=== PATIENT | female | born 1985 | race American Indian/Alaskan Native ===

== ENCOUNTER 2019-05-27 13:32 | Inpatient (IN) | payer MEDICAID, OTHER ==
--- NOTE | 2019-05-27 13:52 | Emergency Department Report ---
Blank Doc - Documentation Documentation: 34-year-old female that presents with nausea vomiting and abdominal pain. This initial assessment/diagnostic orders/clinical plan/treatment(s) is/are subject to change based on patient's health status, clinical progression and re- assessment by fellow clinical providers in the ED. Further treatment and workup at subsequent clinical providers discretion. Patient/guardians urged not to elope from the ED as their condition may be serious if not clinically assessed and managed. Initial orders include: 1- Patient sent to [facility] for further evaluation and treatment 2- labs 3- UA
[2019-05-27] MEDS ORDERED: FAMOTIDINE 20 MG/2 ML INJ IV ONE (14:18)
[2019-05-27] MEDS ORDERED: SODIUM CHLORIDE 0.9% 1000 ML 1,000 ML IV ONE ×2 (14:18→16:03)
[2019-05-27] MEDS ORDERED: ONDANSETRON 4 MG/2 ML INJ IV ONE (14:18)
[2019-05-27] MEDS ORDERED: KETOROLAC 30 MG/1 ML INJ IV ONE (14:18)
[2019-05-27] MEDS ORDERED: DICYCLOMINE 20 MG/2 ML INJ IM ONE (14:18)
[2019-05-27 14:23] LABS: Hematocrit 36.6 % (30.3-42.9); Hemoglobin 12.4 gm/dl (10.1-14.3); Mean Corpuscular HGB Conc 34 % (30-34); Mean Corpuscular Volume 101 fl (79-97); Platelet Count 180 K/mm3 (140-440); Red Blood Count 3.61 M/mm3 (3.65-5.03); Red Cell Distribution Width 13.6 % (13.2-15.2)
[2019-05-27 14:38] LABS: BUN/Creatinine Ratio 9; Blood Urea Nitrogen 6 mg/dL (7-17); Calcium 9.4 mg/dL (8.4-10.2)
[2019-05-27 14:39] LABS: Alanine Aminotransferase 7 units/L (7-56); Albumin 4.5 g/dL (3.9-5); Hemolysis Index 7
[2019-05-27 15:24] LABS: Basophils # (Auto) 0.1 K/mm3 (0.0-0.1); Basophils % (Auto) 0.5 % (0.0-1.8); Eosinophils % (Auto) 0.1 % (0.0-4.3); Lymphocytes # (Auto) 0.9 K/mm3 (1.2-5.4); Lymphocytes % (Auto) 6.6 % (13.4-35.0); Monocytes # (Auto) 0.4 K/mm3 (0.0-0.8)
[2019-05-27 15:25] LABS: Basophils % (Manual) 0 % (0.0-1.8); RBC Morphology Normal; Total Cells Counted 100
[2019-05-27 15:50] LABS: Bacteria,Urine 1+ /HPF (Negative); Bilirubin,Urine NEG (Negative); Blood,Urine LG (Negative); Color,Urine Amber (Yellow); Mucus,Urine 3+ /HPF
[2019-05-27] MEDS ORDERED: MORPHINE 4 MG/1 ML INJ ONE (16:00)
[2019-05-27] MEDS ORDERED: MORPHINE 4 MG/1 ML INJ IV ONE (16:01)
--- NOTE | 2019-05-27 16:02 | Cat Scan Report ---
CT OF THE ABDOMEN AND PELVIS WITH INTRAVENOUS CONTRAST INDICATION / CLINICAL INFORMATION: Diffuse severe abdominal pain. TECHNIQUE: The patient received 100 cc Omnipaque [address] scans at this location are performed using CT dose reduction for ALARA by means of automated exposure control. COMPARISON: None available. FINDINGS: ABDOMEN: There are several mildly thick walled fluid-filled small bowel loops in the left mid to lowe r abdomen, probably representing distal jejunal loops. I see no evidence of bowel obstruction or pneu moperitoneum. The liver, spleen, gallbladder, bile ducts, pancreas, adrenal glands and kidneys are normal. No adeno mayelin is seen. The lung bases are clear. PELVIS: There are multiple small air bubbles along the wall of the cecum and proximal ascending colon circumferentially characteristic of pneumatosis. No bowel wall thickening is seen. I see no inflamma tory process in this region. The appendix is not seen. The superior mesenteric vessels are normal in appearance. There are prominent vessels in the left adnexa in the left renal vein is dilated. This can be seen wi th pelvic venous congestion. The uterus and adnexal regions are otherwise unremarkable. The urinary b ladder is collapsed. The distal ureters are not well seen. There is no evidence of diverticulitis. I do not see a hernia. No acute osseous abnormality is identified. IMPRESSION: 1. Findings characteristic of mild distal jejunal enteritis. 2. Pneumatosis involving the cecum and proximal ascending colon without bowel wall thickening, pneumo peritoneum or portal venous gas. Ischemia is possible. Benign causes of pneumatosis should also be co nsidered. CRITICAL RESULT: Time of Discovery (PARISH NURSE/CDT): 2:53 PM Time of Communication (PARISH NURSE/CDT): 2:54 PM Licensed Practitioner Receiving Report: Dr. Deng in the emergency room. Signer Name: Cornel Garner MD Signed: 05/27/2019 3:58 PM Workstation Name: [employer]
[2019-05-27] MEDS: metroNIDAZOLE/NS 500 MG/100 ML 500 MG/100 ML BAG IV SCH (16:36)
[2019-05-27] MEDS ORDERED: ACETAMINOPHEN 325 MG TAB PO PRN (16:41)
[2019-05-27] MEDS ORDERED: ALBUTEROL 2.5 MG/3 ML NEBU IH PRN (16:41)
--- NOTE | 2019-05-27 16:41 | History and Physical Report ---
History of Present Illness Chief complaint: My stomach hurts real bad History of present illness: 34 YO Female with No PMH presents to ED for evaluation. Pt states that she experienced sudden onset of abdominal pain over the past 1 day with persistently worsening symptoms over the same time frame. Pt states that her pain is 10/10, constant, diffuse, radiates to the back, worsened with movement, associated with nausea and multiple episodes of vomiting. EMS notified and upon arrival the patient was found to be in distress. Pt transported to [facility]. Pt seen and evaluated in ED and found to have symptoms consistent with Peritonitis complicated by SIRS, and UTI. Pt admitted to surgical floor. Surgery team consulted in ED. Pt treated with IV antibiotic therapy and is pending surgical intervention. Pt denies fever, chill, CP, Palpitations, Trauma, BRBPR, skin rash, or known ill contacts. No prior admission for review. No medication listed for reconciliation at time of admission. Past History Past Medical History: No medical history, other (reviewed) Past Surgical History: Social history: single. denies: smoking, alcohol abuse, prescription drug abuse, IV drug use Family history: no significant family history (reviewed) Medications and Allergies Allergies Allergy/AdvReac Type Severity Reaction Status Date / Time No Known Allergies Allergy Unverified 05/27/19 13:45 Home Medications Medication Instructions Recorded Confirmed Last Taken Type No Known Home Medications [No 05/27/19 05/27/19 Unknown History Reported Home Medications] Active Meds: Active Medications Sodium Chloride (Nacl 0.9% 1000 Ml) 1,000 mls @ 999 mls/hr IV BOLUS ONE Stop: 05/27/19 17:03 Cefepime HCl (Cefepime/Ns 2 Gm/100 Ml) 2 gm in 100 mls @ 200 mls/hr IV Q8HR CAL; Protocol Metronidazole (Flagyl 500 Mg/100 Ml) 500 mg in 100 mls @ 100 mls/hr IV Q8HR CAL; Protocol Last Admin: 05/27/19 16:36 Dose: 100 mls/hr Documented by: Review of Systems Constitutional: no weight loss, no weight gain, no fever, no chills Ears, nose, mouth and throat: no ear pain, no ear discharge, no tinnitis, no decreased hearing, no nasal congestion, no nasal discharge, no sinus pressure Breasts: no change in shape, no swelling, no mass Cardiovascular: no chest pain, no orthopnea, no palpitations, no rapid/irregular heart beat, no edema Respiratory: no cough, no cough with sputum, no excessive sputum, no hemoptysis, no shortness of breath Gastrointestinal: abdominal pain, nausea, vomiting, loss of appetite, no constipation, no change in bowel habits, no hematochezia Genitourinary Female: no pelvic pain, no flank pain, no menorrhagia, no dysuria, no urinary frequency, no urgency Rectal: no pain, no incontinence, no bleeding Musculoskeletal: no neck stiffness, no neck pain, no shooting arm pain, no low back pain, no shooting leg pain, no leg numbness/tingling Integumentary: no rash, no pruritis, no redness, no sores, no wounds Neurological: no head injury, no paralysis, no parathesias Psychiatric: no anxiety, no change in sleep habits, no sleep disturbances, no insomnia, no hypersomnia, no change in appetite, no change in libido Endocrine: no cold intolerance, no heat intolerance, no polyphagia, no polydipsia, no polyuria, no nocturia, no excessive sweating Hematologic/Lymphatic: no easy bruising, no easy bleeding, no lymphedema Allergic/Immunologic: no urticaria, no allergic rhinitis, no wheezing, no persistent infections, no anaphylaxis, no angioedema Exam - Constitutional Vitals: Temp Pulse Resp BP Pulse Ox 98.3 F 88 18 117/52 100 05/27/19 13:55 05/27/19 13:55 05/27/19 16:03 05/27/19 13:55 05/27/19 14:15 General appearance: Present: severe distress - EENT Eyes: Present: PERRL ENT: hearing intact, clear oral mucosa - Neck Neck: Present: supple, normal ROM - Respiratory Respiratory effort: normal Respiratory: bilateral: CTA - Cardiovascular Heart Sounds: Present: S1 & S2. Absent: rub, click - Extremities Extremities: pulses symmetrical, No edema Peripheral Pulses: within normal limits - Abdominal General gastrointestinal: Present: soft, tender, non-distended, normal bowel sounds Localized gastrointestinal: tender: diffuse, guarding: diffuse, rebound: diffuse Female genitourinary: Present: normal - Integumentary Integumentary: Present: clear, warm, dry - Musculoskeletal Musculoskeletal: gait normal, strength equal bilaterally - Psychiatric Psychiatric: appropriate mood/affect, intact judgment & insight - Neurologic Neurologic: CNII-XII intact, moves all extremities Results - Labs CBC & Chem 7: 05/27/19 13:57 05/27/19 13:57 Labs: Abnormal lab results 05/27/19 05/27/19 05/27/19 Range/Units 13:57 13:57 Unknown WBC 13.1 H (4.5-11.0) K/mm3 RBC 3.61 L (3.65-5.03) M/mm3 MCV 101 H (79-97) fl MCH 34 H (28-32) pg Lymph % (Auto) 6.6 L (13.4-35.0) % Lymph # 0.9 L (1.2-5.4) K/mm3 Seg Neutrophils % 89.8 H (40.0-70.0) % Seg Neuts % (Manual) 87.0 H (40.0-70.0) % Lymphocytes % (Manual) 7.0 L (13.4-35.0) % Seg Neutrophils # 12.4 H (1.8-7.7) K/mm3 Seg Neutrophils # Man 11.4 H (1.8-7.7) K/mm3 Lymphocytes # (Manual) 0.9 L (1.2-5.4) K/mm3 BUN 6 L (7-17) mg/dL Glucose 119 H (65-100) mg/dL Lipase 11 L (13-60) units/L Ur Specific [employer] 1.040 H (1.003-1.030) Urine WBC (Auto) 8.0 H (0.0-6.0) /HPF Assessment and Plan - Patient Problems (1) Peritonitis (acute) generalized Current Visit: Yes Status: Acute Plan to address problem: Surgery team consulted in ED, Pt to OR as per surgical team. IVF resuscitation therapy, pain control, CBC, CT abdomen pelvis, serial abdominal exam. (2) SIRS (systemic inflammatory response syndrome) Current Visit: Yes Status: Acute Plan to address problem: IV antibiotic therapy, CBC, CMP, chest x ray, urinalysis, (3) UTI (urinary tract infection) Current Visit: Yes Status: Acute Qualifiers: Encounter type: initial encounter Plan to address problem: IV antibiotic therapy, urinalysis, CBC, CMP (4) Pneumatosis coli Current Visit: No Status: Acute Plan to address problem: Surgery consulted, pending surgical intervention, bowel rest, IVF resuscitation therapy, Nil per os. (5) DVT prophylaxis Current Visit: Yes Status: Acute Plan to address problem: SCD to BLE while in bed.
--- NOTE | 2019-05-27 16:58 | Emergency Department Report ---
ED Abdominal Pain HPI - General Chief Complaint: Abdominal Pain Stated Complaint: ABDOMINAL PAIN Time Seen by Provider: 05/27/19 13:51 Source: patient, EMS Mode of arrival: Ambulatory Limitations: No Limitations - History of Present Illness Initial Comments: Patient is complaining of abdominal pain since last night. Patient has had nausea vomiting as well as diarrhea. Patient states that the pain began gradual but heightened in intensity to the point where now she is having 10 out of 10 pain anytime she moves. Patient's denies fever but has had chills. Patient states she's had pain like this once when she had a urinary tract infection. Patient has no dysuria at this time. Severity scale (0 -10): 7 - Related Data Home Medications Medication Instructions Recorded Confirmed Last Taken No Known Home Medications [No 05/27/19 05/27/19 Unknown Reported Home Medications] Allergies Allergy/AdvReac Type Severity Reaction Status Date / Time No Known Allergies Allergy Unverified 05/27/19 13:45 ED Review of Systems ROS: Stated complaint: ABDOMINAL PAIN Other details as noted in HPI Comment: All other systems reviewed and negative ED Past Medical Hx - Past Medical History Previous Medical History?: No - Surgical History Additional Surgical History: C SECTION - Social History Smoking Status: Current Every Day Smoker Substance Use Type: None - Medications Home Medications: Home Medications Medication Instructions Recorded Confirmed Last Taken Type No Known Home Medications [No 05/27/19 05/27/19 Unknown History Reported Home Medications] ED Physical Exam - General Limitations: No Limitations General appearance: alert, anxious, in distress - Head Head exam: Present: atraumatic, normocephalic - Eye Eye exam: Present: normal appearance - ENT ENT exam: Present: mucous membranes moist - Neck Neck exam: Present: normal inspection - Respiratory Respiratory exam: Present: normal lung sounds bilaterally. Absent: respiratory distress, wheezes, rales - Cardiovascular Cardiovascular Exam: Present: regular rate, normal rhythm, normal heart sounds. Absent: systolic murmur, diastolic murmur, rubs, gallop - GI/Abdominal GI/Abdominal exam: Present: soft, tenderness, guarding, rigid, normal bowel sounds. Absent: distended, rebound - Extremities Exam Extremities exam: Present: normal inspection - Back Exam Back exam: Present: normal inspection - Neurological Exam Neurological exam: Present: alert, oriented X3 - Psychiatric Psychiatric exam: Present: normal affect, normal mood - Skin Skin exam: Present: warm, dry, intact, normal color. Absent: rash ED Course Vital Signs 05/27/19 05/27/19 05/27/19 13:55 14:15 16:03 Temperature 98.3 F Pulse Rate 88 Respiratory 28 H 28 H 18 Rate Blood Pressure 117/52 [Left] O2 Sat by Pulse 100 100 Oximetry 05/27/19 16:43 Temperature 98.8 F Pulse Rate 83 Respiratory 22 Rate Blood Pressure 115/62 [Left] O2 Sat by Pulse 98 Oximetry ED Medical Decision Making - Lab Data Result diagrams: 05/27/19 13:57 05/27/19 13:57 Lab Results 05/27/19 05/27/19 05/27/19 Range/Units 13:57 13:57 13:57 WBC 13.1 H (4.5-11.0) K/mm3 RBC 3.61 L (3.65-5.03) M/mm3 Hgb 12.4 (10.1-14.3) gm/dl Hct 36.6 (30.3-42.9) % MCV 101 H (79-97) fl MCH 34 H (28-32) pg MCHC 34 (30-34) % RDW 13.6 (13.2-15.2) % Plt Count 180 (140-440) K/mm3 Lymph % (Auto) 6.6 L (13.4-35.0) % Alfalfa % (Auto) 3.0 (0.0-7.3) % Eos % (Auto) 0.1 (0.0-4.3) % Baso % (Auto) 0.5 (0.0-1.8) % Lymph # 0.9 L (1.2-5.4) K/mm3 Alfalfa # 0.4 (0.0-0.8) K/mm3 Eos # 0.0 (0.0-0.4) K/mm3 Baso # 0.1 (0.0-0.1) K/mm3 Add Manual Diff Complete Total Counted 100 Seg Neutrophils % 89.8 H (40.0-70.0) % Seg Neuts % (Manual) 87.0 H (40.0-70.0) % Band Neutrophils % 0 % Lymphocytes % (Manual) 7.0 L (13.4-35.0) % Reactive Lymphs % (Man) 0 % Monocytes % (Manual) 5.0 (0.0-7.3) % Eosinophils % (Manual) 1.0 (0.0-4.3) % Basophils % (Manual) 0 (0.0-1.8) % Metamyelocytes % 0 % Myelocytes % 0 % Promyelocytes % 0 % Blast Cells % 0 % Nucleated RBC % Not Reportable Seg Neutrophils # 12.4 H (1.8-7.7) K/mm3 Seg Neutrophils # Man 11.4 H (1.8-7.7) K/mm3 Band Neutrophils # 0.0 K/mm3 Lymphocytes # (Manual) 0.9 L (1.2-5.4) K/mm3 Abs React Lymphs (Man) 0.0 K/mm3 Monocytes # (Manual) 0.7 (0.0-0.8) K/mm3 Eosinophils # (Manual) 0.1 (0.0-0.4) K/mm3 Basophils # (Manual) 0.0 (0.0-0.1) K/mm3 Metamyelocytes # 0.0 K/mm3 Myelocytes # 0.0 K/mm3 Promyelocytes # 0.0 K/mm3 Blast Cells # 0.0 K/mm3 WBC Morphology Not Reportable Hypersegmented Neuts Not Reportable Hyposegmented Neuts Not Reportable Hypogranular Neuts Not Reportable Smudge Cells Not Reportable Toxic Granulation Not Reportable Toxic Vacuolation Not Reportable Dohle Bodies Not Reportable Pelger-Huet Anomaly Not Reportable Martinez Rods Not Reportable Platelet Estimate Not Reportable Clumped Platelets Not Reportable Plt Clumps, EDTA Not Reportable Large Platelets Not Reportable Giant Platelets Not Reportable Platelet Satelliting Not Reportable Plt Morphology Comment Not Reportable RBC Morphology Normal Dimorphic RBCs Not Reportable Polychromasia Not Reportable Hypochromasia Not Reportable Poikilocytosis Not Reportable Anisocytosis Not Reportable Microcytosis Not Reportable Macrocytosis Not Reportable Spherocytes Not Reportable Pappenheimer Bodies Not Reportable Sickle Cells Not Reportable Target Cells Not Reportable Tear Drop Cells Not Reportable Ovalocytes Not Reportable Helmet Cells Not Reportable [place] Bodies Not Reportable [place] Rings Not Reportable [place] Cells Not Reportable Bite Cells Not Reportable Crenated Cell Not Reportable Elliptocytes Not Reportable Acanthocytes (Spur) Not Reportable Rouleaux Not Reportable Hemoglobin C Crystals Not Reportable Schistocytes Not Reportable Malaria parasites Not Reportable Jony Bodies Not Reportable Hem Pathologist Commnt No Sodium 137 (137-145) mmol/L Potassium 3.7 (3.6-5.0) mmol/L Chloride 101.2 (98-107) mmol/L Carbon Dioxide 22 (22-30) mmol/L Anion Gap 18 mmol/L BUN 6 L (7-17) mg/dL Creatinine 0.7 (0.7-1.2) mg/dL Estimated GFR > 60 ml/min BUN/Creatinine Ratio 9 % Glucose 119 H (65-100) mg/dL Lactic Acid (0.7-2.0) mmol/L Calcium 9.4 (8.4-10.2) mg/dL Total Bilirubin 1.20 (0.1-1.2) mg/dL AST 13 (5-40) units/L ALT 7 (7-56) units/L Alkaline Phosphatase 58 (35-129) units/L Total Protein 8.0 (6.3-8.2) g/dL Albumin 4.5 (3.9-5) g/dL Albumin/Globulin Ratio 1.3 % Lipase 11 L (13-60) units/L HCG, Qual Negative (Negative) Urine Color (Yellow) Urine Turbidity (Clear) Urine pH (5.0-7.0) Ur Specific [place] (1.003-1.030) Urine Protein (Negative) mg/dL Urine Glucose (UA) (Negative) mg/dL Urine Ketones (Negative) mg/dL Urine Blood (Negative) Urine Nitrite (Negative) Urine Bilirubin (Negative) Urine Urobilinogen (<2.0) mg/dL Ur Leukocyte Esterase (Negative) Urine WBC (Auto) (0.0-6.0) /HPF Urine RBC (Auto) (0.0-6.0) /HPF U Epithel Cells (Auto) (0-13.0) /HPF Urine Bacteria (Auto) (Negative) /HPF Urine Mucus /HPF 05/27/19 05/27/19 Range/Units 16:25 Unknown WBC (4.5-11.0) K/mm3 RBC (3.65-5.03) M/mm3 Hgb (10.1-14.3) gm/dl Hct (30.3-42.9) % MCV (79-97) fl MCH (28-32) pg MCHC (30-34) % RDW (13.2-15.2) % Plt Count (140-440) K/mm3 Lymph % (Auto) (13.4-35.0) % Alfalfa % (Auto) (0.0-7.3) % Eos % (Auto) (0.0-4.3) % Baso % (Auto) (0.0-1.8) % Lymph # (1.2-5.4) K/mm3 Alfalfa # (0.0-0.8) K/mm3 Eos # (0.0-0.4) K/mm3 Baso # (0.0-0.1) K/mm3 Add Manual Diff Total Counted Seg Neutrophils % (40.0-70.0) % Seg Neuts % (Manual) (40.0-70.0) % Band Neutrophils % % Lymphocytes % (Manual) (13.4-35.0) % Reactive Lymphs % (Man) % Monocytes % (Manual) (0.0-7.3) % Eosinophils % (Manual) (0.0-4.3) % Basophils % (Manual) (0.0-1.8) % Metamyelocytes % % Myelocytes % % Promyelocytes % % Blast Cells % % Nucleated RBC % Seg Neutrophils # (1.8-7.7) K/mm3 Seg Neutrophils # Man (1.8-7.7) K/mm3 Band Neutrophils # K/mm3 Lymphocytes # (Manual) (1.2-5.4) K/mm3 Abs React Lymphs (Man) K/mm3 Monocytes # (Manual) (0.0-0.8) K/mm3 Eosinophils # (Manual) (0.0-0.4) K/mm3 Basophils # (Manual) (0.0-0.1) K/mm3 Metamyelocytes # K/mm3 Myelocytes # K/mm3 Promyelocytes # K/mm3 Blast Cells # K/mm3 WBC Morphology Hypersegmented Neuts Hyposegmented Neuts Hypogranular Neuts Smudge Cells Toxic Granulation Toxic Vacuolation Dohle Bodies Pelger-Huet Anomaly Martinez Rods Platelet Estimate Clumped Platelets Plt Clumps, EDTA Large Platelets Giant Platelets Platelet Satelliting Plt Morphology Comment RBC Morphology Dimorphic RBCs Polychromasia Hypochromasia Poikilocytosis Anisocytosis Microcytosis Macrocytosis Spherocytes Pappenheimer Bodies Sickle Cells Target Cells Tear Drop Cells Ovalocytes Helmet Cells [place] Bodies [place] Rings Peter Cells Bite Cells Crenated Cell Elliptocytes Acanthocytes (Spur) Rouleaux Hemoglobin C Crystals Schistocytes Malaria parasites Jony Bodies Hem Pathologist Commnt Sodium (137-145) mmol/L Potassium (3.6-5.0) mmol/L Chloride (98-107) mmol/L Carbon Dioxide (22-30) mmol/L Anion Gap mmol/L BUN (7-17) mg/dL Creatinine (0.7-1.2) mg/dL Estimated GFR ml/min BUN/Creatinine Ratio % Glucose (65-100) mg/dL Lactic Acid 0.90 (0.7-2.0) mmol/L Calcium (8.4-10.2) mg/dL Total Bilirubin (0.1-1.2) mg/dL AST (5-40) units/L ALT (7-56) units/L Alkaline Phosphatase (35-129) units/L Total Protein (6.3-8.2) g/dL Albumin (3.9-5) g/dL Albumin/Globulin Ratio % Lipase (13-60) units/L HCG, Qual (Negative) Urine Color [place] (Yellow) Urine Turbidity Slightly-cloudy (Clear) Urine pH 6.0 (5.0-7.0) Ur Specific [place] 1.040 H (1.003-1.030) Urine Protein 30 mg/dl (Negative) mg/dL Urine Glucose (UA) Neg (Negative) mg/dL Urine Ketones 20 (Negative) mg/dL Urine Blood Lg (Negative) Urine Nitrite Neg (Negative) Urine Bilirubin Neg (Negative) Urine Urobilinogen 4.0 (<2.0) mg/dL Ur Leukocyte Esterase Sm (Negative) Urine WBC (Auto) 8.0 H (0.0-6.0) /HPF Urine RBC (Auto) 7.0 (0.0-6.0) /HPF U Epithel Cells (Auto) 12.0 (0-13.0) /HPF Urine Bacteria (Auto) 1+ (Negative) /HPF Urine Mucus 3+ /HPF - Radiology Data CT OF THE ABDOMEN AND PELVIS WITH INTRAVENOUS CONTRAST INDICATION / CLINICAL INFORMATION: Diffuse severe abdominal pain. TECHNIQUE: The patient received 100 cc Omnipaque [address] scans at this location are performed using CT dose reduction for ALARA by means of automated exposure control. COMPARISON: None available. FINDINGS: ABDOMEN: There are several mildly thick walled fluid-filled small bowel loops in the left mid to lower abdomen, probably representing distal jejunal loops. I see no evidence of bowel obstruction or pneumoperitoneum. The liver, spleen, gallbladder, bile ducts, pancreas, adrenal glands and kidneys are normal. No adenopathy is seen. The lung bases are clear. PELVIS: There are multiple small air bubbles along the wall of the cecum and proximal ascending colon circumferentially characteristic of pneumatosis. No bowel wall thickening is seen. I see no inflammatory process in this region. The appendix is not seen. The superior mesenteric vessels are normal in appearance. There are prominent vessels in the left adnexa in the left renal vein is dilated. This can be seen with pelvic venous congestion. The uterus and adnexal regions are otherwise unremarkable. The urinary bladder is collapsed. The distal ureters are not well seen. There is no evidence of diverticulitis. I do not see a hernia. No acute osseous abnormality is identified. IMPRESSION: 1. Findings characteristic of mild distal jejunal enteritis. 2. Pneumatosis involving the cecum and proximal ascending colon without bowel wall thickening, pneumoperitoneum or portal venous gas. Ischemia is possible. Benign causes of pneumatosis should a lso be considered. CRITICAL RESULT: Time of Discovery (NAIL TECH/CDT): 2:53 PM Time of Communication (NAIL TECH/CDT): 2:54 PM Licensed Practitioner Receiving Report: Dr. Deng in the emergency room. Signer Name: Cornel Garner MD Signed: 05/27/2019 3:58 PM Workstation Name: [id number] - Medical Decision Making Patient is a 34-year-old female nausea vomiting diarrhea. The patient's symptoms are very consistent with a gastroenteritis however patient's exam shows she is exquisitely tender with a abdomen that has guarding. Abdomen is also firm to palpation. CT shows the patient likely has some pneumatosis to the cecum. Patient will be started on antibiotics. Blood cultures been obtained as well. Patient be admitted to the hospitalist service. with surgery has been consulted as well Critical care attestation.: If time is entered above; I have spent that time in minutes in the direct care of this critically ill patient, excluding procedure time. ED Disposition Clinical Impression: Gastroenteritis, Pneumatosis coli Disposition: [id number] OP ADMIT IP TO THIS HOSP Is pt being admited?: Yes Does the pt Need Aspirin: No Condition: Stable Time of Disposition: 16:58
--- NOTE | 2019-05-27 17:21 | Consultation ---
History of Present Illness Consult date: 05/27/19 Reason for consult: abdominal pain Chief complaint: abdominal pain - History of present illness History of present illness: 34 yo F with acute onset abdominal pain that started in the mid abdomen and radi ates to the rest of abdomen. It is pressure like, feels like a "heartbeat" that goes to the back. She states it started yesterday after eating [place] [employer] food. Her significant other also felt ill after eating the food but did not have abdominal pain. Patient states she has had pain like this in the past when she had food poisoning in the past. She denies f/c, cp, sob. She did start menstruating but s tates she took midol which did not help. This pain is different than her usual menstrual pain. +nausea and one episode of emesis. Feels thirsty now. Past History Past Medical History: No medical history Past Surgical History: Social history: no significant social history Family history: no significant family history Medications and Allergies Allergies Allergy/AdvReac Type Severity Reaction Status Date / Time No Known Allergies Allergy Unverified 05/27/19 13:45 Home Medications Medication Instructions Recorded Confirmed Last Taken Type No Known Home Medications [No 05/27/19 05/27/19 Unknown History Reported Home Medications] Active Meds: Active Medications Acetaminophen (Tylenol) 650 mg PO Q4H PRN PRN Reason: Pain MILD(1-3)/Fever >100.5/SEWELL Albuterol (Proventil) 2.5 mg IH Q4HRT PRN PRN Reason: Shortness Of Breath Hydromorphone HCl (Dilaudid) 0.5 mg IV Q6H PRN PRN Reason: Pain , Severe (7-10) Cefepime HCl (Cefepime/Ns 2 Gm/100 Ml) 2 gm in 100 mls @ 200 mls/hr IV Q8HR CAL; Protocol Metronidazole (Flagyl 500 Mg/100 Ml) 500 mg in 100 mls @ 100 mls/hr IV Q8HR CAL; Protocol Last Admin: 05/27/19 16:36 Dose: 100 mls/hr Documented by: Ondansetron HCl (Zofran) 4 mg IV Q8H PRN PRN Reason: Nausea And Vomiting Sodium Chloride (Sodium Chloride Flush Syringe 10 Ml) 10 ml IV BID CAL Sodium Chloride (Sodium Chloride Flush Syringe 10 Ml) 10 ml IV PRN PRN PRN Reason: LINE FLUSH Review of Systems All systems: negative (10 pt ROS performed and negative except for that listed in HPI) Exam Vital Signs Temp Pulse Resp BP Pulse Ox 98.3 F 88 28 H 117/52 100 05/27/19 13:55 05/27/19 13:55 05/27/19 13:55 05/27/19 13:55 05/27/19 13:55 Narrative exam: Gen: AAOx3. moderate distress due to abdominal pain. Tearful ENT: no scleral icterus or conjunctival pallor CV: s1, S2+ Resp: even and unlabored Abd: firm, ND, + diffuse TTP with guarding in RLQ and suprapubic region. Ext: no c/c/e Results - Labs 05/27/19 13:57 05/27/19 13:57 Abnormal lab results 05/27/19 05/27/19 05/27/19 Range/Units 13:57 13:57 Unknown WBC 13.1 H (4.5-11.0) K/mm3 RBC 3.61 L (3.65-5.03) M/mm3 MCV 101 H (79-97) fl MCH 34 H (28-32) pg Lymph % (Auto) 6.6 L (13.4-35.0) % Lymph # 0.9 L (1.2-5.4) K/mm3 Seg Neutrophils % 89.8 H (40.0-70.0) % Seg Neuts % (Manual) 87.0 H (40.0-70.0) % Lymphocytes % (Manual) 7.0 L (13.4-35.0) % Seg Neutrophils # 12.4 H (1.8-7.7) K/mm3 Seg Neutrophils # Man 11.4 H (1.8-7.7) K/mm3 Lymphocytes # (Manual) 0.9 L (1.2-5.4) K/mm3 BUN 6 L (7-17) mg/dL Glucose 119 H (65-100) mg/dL Lipase 11 L (13-60) units/L Ur Specific [place] 1.040 H (1.003-1.030) Urine WBC (Auto) 8.0 H (0.0-6.0) /HPF Diabetes panel 05/27/19 Range/Units 13:57 Sodium 137 (137-145) mmol/L Potassium 3.7 (3.6-5.0) mmol/L Chloride 101.2 (98-107) mmol/L Carbon Dioxide 22 (22-30) mmol/L BUN 6 L (7-17) mg/dL Creatinine 0.7 (0.7-1.2) mg/dL Glucose 119 H (65-100) mg/dL Calcium 9.4 (8.4-10.2) mg/dL AST 13 (5-40) units/L ALT 7 (7-56) units/L Alkaline Phosphatase 58 (35-129) units/L Total Protein 8.0 (6.3-8.2) g/dL Albumin 4.5 (3.9-5) g/dL Calcium panel 05/27/19 Range/Units 13:57 Calcium 9.4 (8.4-10.2) mg/dL Albumin 4.5 (3.9-5) g/dL Pituitary panel 05/27/19 Range/Units 13:57 Sodium 137 (137-145) mmol/L Potassium 3.7 (3.6-5.0) mmol/L Chloride 101.2 (98-107) mmol/L Carbon Dioxide 22 (22-30) mmol/L BUN 6 L (7-17) mg/dL Creatinine 0.7 (0.7-1.2) mg/dL Glucose 119 H (65-100) mg/dL Calcium 9.4 (8.4-10.2) mg/dL Adrenal panel 05/27/19 Range/Units 13:57 Sodium 137 (137-145) mmol/L Potassium 3.7 (3.6-5.0) mmol/L Chloride 101.2 (98-107) mmol/L Carbon Dioxide 22 (22-30) mmol/L BUN 6 L (7-17) mg/dL Creatinine 0.7 (0.7-1.2) mg/dL Glucose 119 H (65-100) mg/dL Calcium 9.4 (8.4-10.2) mg/dL Total Bilirubin 1.20 (0.1-1.2) mg/dL AST 13 (5-40) units/L ALT 7 (7-56) units/L Alkaline Phosphatase 58 (35-129) units/L Total Protein 8.0 (6.3-8.2) g/dL Albumin 4.5 (3.9-5) g/dL - Imaging CT scan - abdomen: report reviewed, image reviewed CT scan - pelvis: report reviewed, image reviewed Assessment and Plan 34 yo F with abdominal pain, pneumatosis of cecum, thickened jejunum Plan: 1. Admit to hospitalist service 2. NPO 3. IVF 4. IV abx 5. prn pain and nausea control 6. Due to patient's abdominal pain, peritoneal signs on exam, CT scan findings of pneumatosis of colon, I recommend at least a diagnostic laparoscopy to assess the viability of the cecum and ascending colon. I discussed the possibility of exploratory laparotomy, bowel resection, ostomy with her along with risks, benefits, alternatives to surgery. I asked the patient to call her significant other to update him of plan which she obliged to do. Discussed with Dr. Deng. Thank you, please call with questions.
[2019-05-27] MEDS: CEFEPIME/NS 2 GM/100 ML 2 GM/100 ML BAG IV SCH (18:00)
[2019-05-27] MEDS: HYDROmorphone 1 MG/1 ML INJ IV PRN (18:05)
[2019-05-27] MEDS: ONDANSETRON 4 MG/2 ML INJ IV PRN (18:10)
[2019-05-27] MEDS ORDERED: LIDOCAINE (1%) 10 MG/1 ML VIAL 20 ML MDV INFILTRATI ONE (18:20)
[2019-05-27] MEDS ORDERED: SODIUM CHLORIDE 0.9% IRRIG SOLN 2000 ML IR ONE (18:20)
[2019-05-27] MEDS ORDERED: BUPIVACAINE-EPINEPHRINE/PF 0.5%-1:200,000 (30 ML) VIAL INFILTRATI ONE ×2 (18:20→20:21)
[2019-05-27] MEDS ORDERED: SODIUM CHLORIDE 0.9% IRR 1,000 ML BOTTLE IR ONE (18:20)
[2019-05-27] MEDS ORDERED: LIDOCAINE (1%) 10 MG/1 ML VIAL 20 ML MDV ONE (20:20)
[2019-05-27] MEDS ORDERED: LIDOCAINE MPF (2%) 20 MG/1 ML VIAL 5 ML ONE (20:30)
[2019-05-27] MEDS ORDERED: fentaNYL 100 MCG/2 ML INJ ONE ×2 (20:30)
[2019-05-27] MEDS ORDERED: ROCURONIUM 50 MG/5 ML INJ IV ONE (20:30)
[2019-05-27] MEDS ORDERED: PROPOFOL 200 MG/20 ML VIAL IV ONE (20:31)
[2019-05-27] MEDS ORDERED: NEOSTIGMINE 10MG/10 ML INJ MDV ONE (20:32)
[2019-05-27] MEDS ORDERED: dexAMETHasone 20 MG/5 ML VIAL ONE (20:32)
[2019-05-27] MEDS ORDERED: GLYCOPYRROLATE 0.4 MG/2 ML INJ ONE (20:32)
[2019-05-27] MEDS ORDERED: PHENYLEPHRINE/NS 1,000 MCG/10 ML SYRINGE (OR USE) IV ONE (20:32)
[2019-05-27] MEDS ORDERED: ONDANSETRON 4 MG/2 ML INJ ONE (20:32)
[2019-05-27] MEDS ORDERED: SUCCINYLCHOLINE CHLORIDE 200 MG/10 ML INJ MDV ONE (20:32)
[2019-05-27] MEDS ORDERED: MIDAZOLAM 2 MG/2 ML INJ ONE (21:01)
[2019-05-27] MEDS ORDERED: HYDROmorphone 1 MG/1 ML INJ IV PRN (21:16)
--- NOTE | 2019-05-27 21:16 | Anesthesia Consultation ---
Anesthesia Consult and Med Hx Date of service: 05/27/19 - Airway Anesthetic Teeth Evaluation: Good ROM Head & Neck: Adequate Mental/Hyoid Distance: Adequate Mallampati Class: Class I Intubation Access Assessment: Good - Pulmonary Exam CTA: Yes - Cardiac Exam Cardiac Exam: RRR - Pre-Operative Health Status ASA Pre-Surgery Classification: ASA1, Emergency Proposed Anesthetic Plan: General - Pulmonary Hx Smoking: No Hx Respiratory Symptoms: No - Cardiovascular System Hx Hypertension: No - Central Nervous System CVA: No - Gastrointestinal Hx Gastroesophageal Reflux Disease: No - Endocrine Hx Renal Disease: No Hx Liver Disease: No Hx Insulin Dependent Diabetes: No Hx Non-Insulin Dependent Diabetes: No Hx Thyroid Disease: No - Hematic Hx Anemia: No - Other Systems Hx Obesity: No - Additional Comments Anesthesia Medical History Comments: No hx anesthetic complications. Presented with nausea, vomiting, and abdominal pain now scheduled for diagnostic laparoscopy. Plan GETA/RSI.
--- NOTE | 2019-05-27 21:16 | Anesthesia Day of Surgery ---
Anesthesia Day of Surgery - Day of Surgery Patient Examined: Yes Patient H&P Reviewed: Yes Patient is NPO: Yes
[2019-05-27] MEDS ORDERED: HYDROmorphone 1 MG/1 ML INJ ONE (21:51)
--- NOTE | 2019-05-27 22:12 | Post Operative Note ---
Date of procedure: 05/27/19 Pre-op diagnosis: peritonitis, pneumatosis of cecum Post-op diagnosis: same Findings: 1. Small amount of fluid resembling chyle in abdomen coating small bowel. 2. Small bowel appeared unremarkable without evidence of dilatation. 3. Galllbladder, liver, omentum unremarkable. 4. Distended, fluid filled cecum, ascending colon, and transverse colon but no evidence of ischemia/necrosis 4. Omental adhesions to anterior abdominal wall in RLQ and cecum 5. Normal appendix Procedure: Diagnostic laparoscopy, peritoneal lavage, placement of drain Anesthesia: BEATA, local Surgeon: ANA ROSA MEAD Research Engineer Marine Equipment: MED BEARD Estimated blood loss: minimal Pathology: list (intraperitoneal fluid cultures) Specimen disposition: to lab Condition: stable Disposition: PACU
[2019-05-27] MEDS ORDERED: SODIUM CHLORIDE 0.9% 1000 ML 1,000 ML ONE (22:36)
--- NOTE | 2019-05-27 22:51 | Post Anesthesia Evaluation ---
- Post Anesthesia Evaluation Patient Participated: Yes Airway Patent: Yes Stable Respiratory Function: Yes Nausea/Vomiting: No Temp > 96.8F: Yes Pain Manageable: Yes Adequeate Hydration: Yes Anesthesia Complications: No
[2019-05-28] MEDS: CEFEPIME/NS 2 GM/100 ML 2 GM/100 ML BAG IV SCH ×4 (00:32→23:19)
[2019-05-28] MEDS: METOCLOPRAMIDE 10 MG/2 ML INJ IV PRN (00:37)
[2019-05-28] MEDS: metroNIDAZOLE/NS 500 MG/100 ML 500 MG/100 ML BAG IV SCH ×4 (00:45→21:28)
[2019-05-28] MEDS: D5W/0.9% NACL 1,000 ML IV SCH ×2 (02:00→16:54)
[2019-05-28 06:08] LABS: Hematocrit 29.1 % (30.3-42.9); Hemoglobin 9.9 gm/dl (10.1-14.3); Mean Corpuscular HGB Conc 34 % (30-34); Mean Corpuscular Volume 103 fl (79-97); Platelet Count 137 K/mm3 (140-440); Red Blood Count 2.83 M/mm3 (3.65-5.03); Red Cell Distribution Width 13.8 % (13.2-15.2)
[2019-05-28 06:26] LABS: Alanine Aminotransferase 7 units/L (7-56); Albumin 3.5 g/dL (3.9-5); BUN/Creatinine Ratio 11; Blood Urea Nitrogen 8 mg/dL (7-17); Calcium 7.8 mg/dL (8.4-10.2); Hemolysis Index 6
[2019-05-28 07:11] LABS: Basophils % (Manual) 0 % (0.0-1.8); Eosinophils % (Manual) 0 % (0.0-4.3); Total Cells Counted 100
[2019-05-28 07:12] LABS: Ovalocytes Few; Platelet Estimate Consistent w Auto
[2019-05-28 07:13] LABS: Macrocytosis Rare
[2019-05-28] MEDS: HYDROmorphone 1 MG/1 ML INJ IV PRN ×2 (09:28→20:23)
--- NOTE | 2019-05-28 10:02 | Progress Note ---
Assessment and Plan Assessment and plan: 34-year-old woman with no significant past medical history who presents to the hospital with abdominal pain. Diagnosis Cecal pneumatosis with thickened jejunum Colitis and jejunitis Sepsis UTI? highly doubt plan Status post ex lap 05/27 which showed small amount of few fluid resembling chyle in the abdomen coating small bowel, omental adhesions anterior abdominal wall and right lower quadrant and cecum. on clear liquid diet, advance diet per general surgery -Currently on empiric antibiotics, is likely due to an infectious process, ID consult Obtain Chlamydia gonorrhea screen fup urine cx Dvt ppx- lovenox History Interval history: Complaining of nausea and vomiting. Has not been tolerating diet. No fevers Denies vaginal discharge Abdominal pain feels like a squeezing of her belly, but is improved Hospitalist Physical - Physical exam Narrative exam: General.: Appears ill, toxic appearance HEENT: Moist mucous membranes, extraocular muscles intact, no lymphadenopathy Neck: supple Cardiac: S1-S2 heard Lungs: clear to auscultation bilaterally Abdomen: soft , tenderness around surgical sites, dressing was not removed, nondistended, bowel sounds positive Extremities: no edema clubbing or cyanosis Skin: no rash or lesions Neurologic: no gross focal deficits Psych: calm, and cooperative - Constitutional Vitals: Temp Pulse Resp BP Pulse Ox 98.0 F 74 18 103/55 100 05/28/19 07:34 05/28/19 07:34 05/28/19 07:34 05/28/19 07:34 05/28/19 09:43 General appearance: Present: severe distress Results - Labs CBC & Chem 7: 05/28/19 05:47 05/28/19 05:47 Labs: Laboratory Last Values WBC 14.1 K/mm3 (4.5-11.0) H 05/28/19 05:47 RBC 2.83 M/mm3 (3.65-5.03) L 05/28/19 05:47 Hgb 9.9 gm/dl (10.1-14.3) L 05/28/19 05:47 Hct 29.1 % (30.3-42.9) L D 05/28/19 05:47 MCV 103 fl (79-97) H 05/28/19 05:47 MCH 35 pg (28-32) H 05/28/19 05:47 MCHC 34 % (30-34) 05/28/19 05:47 RDW 13.8 % (13.2-15.2) 05/28/19 05:47 Plt Count 137 K/mm3 (140-440) L 05/28/19 05:47 Lymph % (Auto) 6.6 % (13.4-35.0) L 05/27/19 13:57 [place] % (Auto) 3.0 % (0.0-7.3) 05/27/19 13:57 Eos % (Auto) 0.1 % (0.0-4.3) 05/27/19 13:57 Baso % (Auto) 0.5 % (0.0-1.8) 05/27/19 13:57 Lymph # 0.9 K/mm3 (1.2-5.4) L 05/27/19 13:57 [place] # 0.4 K/mm3 (0.0-0.8) 05/27/19 13:57 Eos # 0.0 K/mm3 (0.0-0.4) 05/27/19 13:57 Baso # 0.1 K/mm3 (0.0-0.1) 05/27/19 13:57 Add Manual Diff Complete 05/28/19 05:47 Total Counted 100 05/28/19 05:47 Seg Neutrophils % Credit Historian 05/28/19 05:47 Seg Neuts % (Manual) 94.0 % (40.0-70.0) H 05/28/19 05:47 Band Neutrophils % 0 % 05/28/19 05:47 Lymphocytes % (Manual) 1.0 % (13.4-35.0) L 05/28/19 05:47 Reactive Lymphs % (Man) 0 % 05/28/19 05:47 Monocytes % (Manual) 4.0 % (0.0-7.3) 05/28/19 05:47 Eosinophils % (Manual) 0 % (0.0-4.3) 05/28/19 05:47 Basophils % (Manual) 0 % (0.0-1.8) 05/28/19 05:47 Metamyelocytes % 1.0 % 05/28/19 05:47 Myelocytes % 0 % 05/28/19 05:47 Promyelocytes % 0 % 05/28/19 05:47 Blast Cells % 0 % 05/28/19 05:47 Nucleated RBC % Not Reportable 05/28/19 05:47 Seg Neutrophils # 12.4 K/mm3 (1.8-7.7) H 05/27/19 13:57 Seg Neutrophils # Man 13.3 K/mm3 (1.8-7.7) H 05/28/19 05:47 Band Neutrophils # 0.0 K/mm3 05/28/19 05:47 Lymphocytes # (Manual) 0.1 K/mm3 (1.2-5.4) L 05/28/19 05:47 Abs React Lymphs (Man) 0.0 K/mm3 05/28/19 05:47 Monocytes # (Manual) 0.6 K/mm3 (0.0-0.8) 05/28/19 05:47 Eosinophils # (Manual) 0.0 K/mm3 (0.0-0.4) 05/28/19 05:47 Basophils # (Manual) 0.0 K/mm3 (0.0-0.1) 05/28/19 05:47 Metamyelocytes # 0.1 K/mm3 05/28/19 05:47 Myelocytes # 0.0 K/mm3 05/28/19 05:47 Promyelocytes # 0.0 K/mm3 05/28/19 05:47 Blast Cells # 0.0 K/mm3 05/28/19 05:47 WBC Morphology Not Reportable 05/28/19 05:47 Hypersegmented Neuts Not Reportable 05/28/19 05:47 Hyposegmented Neuts Not Reportable 05/28/19 05:47 Hypogranular Neuts Not Reportable 05/28/19 05:47 Smudge Cells Not Reportable 05/28/19 05:47 Toxic Granulation Not Reportable 05/28/19 05:47 Toxic Vacuolation Not Reportable 05/28/19 05:47 Dohle Bodies Not Reportable 05/28/19 05:47 Pelger-Huet Anomaly Not Reportable 05/28/19 05:47 [place] Rods Not Reportable 05/28/19 05:47 Platelet Estimate Consistent w auto 05/28/19 05:47 Clumped Platelets Not Reportable 05/28/19 05:47 Plt Clumps, EDTA Not Reportable 05/28/19 05:47 Large Platelets Not Reportable 05/28/19 05:47 Giant Platelets Not Reportable 05/28/19 05:47 Platelet Satelliting Not Reportable 05/28/19 05:47 Plt Morphology Comment Not Reportable 05/28/19 05:47 RBC Morphology Not Reportable 05/28/19 05:47 Dimorphic RBCs Not Reportable 05/28/19 05:47 Polychromasia Not Reportable 05/28/19 05:47 Hypochromasia Not Reportable 05/28/19 05:47 Poikilocytosis Not Reportable 05/28/19 05:47 Anisocytosis Not Reportable 05/28/19 05:47 Microcytosis Not Reportable 05/28/19 05:47 Macrocytosis Rare 05/28/19 05:47 Spherocytes Not Reportable 05/28/19 05:47 Pappenheimer Bodies Not Reportable 05/28/19 05:47 Sickle Cells Not Reportable 05/28/19 05:47 Target Cells Not Reportable 05/28/19 05:47 Tear Drop Cells Not Reportable 05/28/19 05:47 Ovalocytes Few 05/28/19 05:47 Helmet Cells Not Reportable 05/28/19 05:47 [place] Bodies Not Reportable 05/28/19 05:47 [place] Rings Not Reportable 05/28/19 05:47 [place] Cells Not Reportable 05/28/19 05:47 Bite Cells Not Reportable 05/28/19 05:47 Crenated Cell Not Reportable 05/28/19 05:47 Elliptocytes Not Reportable 05/28/19 05:47 Acanthocytes (Spur) Not Reportable 05/28/19 05:47 Rouleaux Not Reportable 05/28/19 05:47 Hemoglobin C Crystals Not Reportable 05/28/19 05:47 Schistocytes Not Reportable 05/28/19 05:47 Malaria parasites Not Reportable 05/28/19 05:47 Jony Bodies Not Reportable 05/28/19 05:47 Hem Pathologist Commnt No 05/28/19 05:47 Sodium 140 mmol/L (137-145) 05/28/19 05:47 Potassium 4.0 mmol/L (3.6-5.0) 05/28/19 05:47 Chloride 110.2 mmol/L (98-107) H 05/28/19 05:47 Carbon Dioxide 21 mmol/L (22-30) L 05/28/19 05:47 Anion Gap 13 mmol/L 05/28/19 05:47 BUN 8 mg/dL (7-17) 05/28/19 05:47 Creatinine 0.7 mg/dL (0.7-1.2) 05/28/19 05:47 Estimated GFR > 60 ml/min 05/28/19 05:47 BUN/Creatinine Ratio 11 % 05/28/19 05:47 Glucose 132 mg/dL (65-100) H 05/28/19 05:47 Lactic Acid 0.90 mmol/L (0.7-2.0) 05/27/19 19:53 Calcium 7.8 mg/dL (8.4-10.2) L D 05/28/19 05:47 Total Bilirubin 0.90 mg/dL (0.1-1.2) 05/28/19 05:47 AST 18 units/L (5-40) 05/28/19 05:47 ALT 7 units/L (7-56) 05/28/19 05:47 Alkaline Phosphatase 43 units/L (35-129) 05/28/19 05:47 Total Protein 6.2 g/dL (6.3-8.2) L D 05/28/19 05:47 Albumin 3.5 g/dL (3.9-5) L 05/28/19 05:47 Albumin/Globulin Ratio 1.3 % 05/28/19 05:47 Lipase 11 units/L (13-60) L 05/27/19 13:57 HCG, Qual Negative (Negative) 05/27/19 13:57 Urine Color [place] (Yellow) 05/27/19 Unknown Urine Turbidity Slightly-cloudy (Clear) 05/27/19 Unknown Urine pH 6.0 (5.0-7.0) 05/27/19 Unknown Ur Specific [place] 1.040 (1.003-1.030) H 05/27/19 Unknown Urine Protein 30 mg/dl mg/dL (Negative) 05/27/19 Unknown Urine Glucose (UA) Neg mg/dL (Negative) 05/27/19 Unknown Urine Ketones 20 mg/dL (Negative) 05/27/19 Unknown Urine Blood Lg (Negative) 05/27/19 Unknown Urine Nitrite Neg (Negative) 05/27/19 Unknown Urine Bilirubin Neg (Negative) 05/27/19 Unknown Urine Urobilinogen 4.0 mg/dL (<2.0) 05/27/19 Unknown Ur Leukocyte Esterase Sm (Negative) 05/27/19 Unknown Urine WBC (Auto) 8.0 /HPF (0.0-6.0) H 05/27/19 Unknown Urine RBC (Auto) 7.0 /HPF (0.0-6.0) 05/27/19 Unknown U Epithel Cells (Auto) 12.0 /HPF (0-13.0) 05/27/19 Unknown Urine Bacteria (Auto) 1+ /HPF (Negative) 05/27/19 Unknown Urine Mucus 3+ /HPF 05/27/19 Unknown Active Medications - Current Medications Current Medications: Generic Name Dose Route Start Last Admin Trade Name Freq PRN Reason Stop Dose Admin Acetaminophen 650 mg 05/27/19 16:41 Tylenol PO Q4H PRN Pain MILD(1-3)/Fever >100.5/SEWELL Albuterol 2.5 mg 05/27/19 16:41 Proventil IH Q4HRT PRN Shortness Of Breath Enoxaparin Sodium 40 mg 05/28/19 22:00 Enoxaparin SUB-Q QDAY@2200 CAL Hydromorphone HCl 0.5 mg 05/27/19 16:42 05/28/19 09:28 Dilaudid IV 0.5 mg Q6H PRN Administration Pain , Severe (7-10) Hydromorphone HCl 0.5 mg 05/27/19 21:16 Dilaudid IV Q10MIN PRN Pain , Severe (7-10) Cefepime HCl 2 gm in 100 mls @ 200 mls/hr 05/27/19 17:00 05/28/19 06:00 Cefepime/Ns 2 Gm/100 Ml IV 200 mls/hr Q8HR CAL Administration Protocol Metronidazole 500 mg in 100 mls @ 100 mls/hr 05/27/19 17:00 05/28/19 05:58 Flagyl 500 Mg/100 Ml IV 100 mls/hr Q8HR CAL Administration Protocol Dextrose/Sodium Chloride 1,000 mls @ 100 mls/hr 05/27/19 23:00 05/28/19 02:00 D5ns IV 100 mls/hr DIRECT CAL Administration Metoclopramide HCl 10 mg 05/27/19 22:07 05/28/19 00:37 Reglan IV 10 mg Q6H PRN Administration Nausea And Vomiting Ondansetron HCl 4 mg 05/27/19 16:41 05/27/19 18:10 Zofran IV 4 mg Q8H PRN Administration Nausea And Vomiting Sodium Chloride 10 ml 05/27/19 22:00 05/28/19 00:46 Sodium Chloride Flush Syringe 10 Ml IV 10 ml BID CAL Administration Sodium Chloride 10 ml 05/27/19 16:41 Sodium Chloride Flush Syringe 10 Ml IV PRN PRN LINE FLUSH
--- NOTE | 2019-05-28 12:22 | Progress Note ---
Assessment and Plan 34 yo F s/p Diagnostic laparoscopy, peritoneal lavage, placement of drain, POD 1 Plan: 1. start clear liquid diet, would advance very slowly 2. await bowel function 3. IVF 4. prn pain control, will add toradol 5. DVT ppx 6. monitor KATHYA drain output will remove if remains low output and serous 7. STD testing ordered by 1' service 8. abx for UTI 9. OOB/ambulate Will follow. Thank you, please call with questions. Subjective Date of service: 05/28/19 Narrative: Pt seen and examined. c/o lower abdominal pain, crampy, intermittent but much improved since yesterday. No f/c. Had one episode of emesis this am after pain medications. States dilaudid makes the cramps worse. She has urinated on her own which she states also exacerbates the crampy pain. Objective Vital Signs - 12hr 05/28/19 05/28/19 05/28/19 01:40 04:50 07:34 Temperature 98.1 F 98.0 F Pulse Rate 83 74 Respiratory 16 18 Rate Blood Pressure 82/48 103/55 O2 Sat by Pulse 96 100 100 Oximetry 05/28/19 05/28/19 09:43 11:23 Temperature 98.3 F Pulse Rate 63 Respiratory 18 Rate Blood Pressure 100/56 O2 Sat by Pulse 100 100 Oximetry - General physical appearance Narrative Exam: Gen: AAOx3. NAD CV: s1, S2+ resp; even and unlabored Abd: soft, ND, moderate TTP in suprapubic region without r/r/g. Incisions c/d/i. KATHYA drain serous Ext: no c/c/e - Labs 05/28/19 05:47 05/28/19 05:47 Diabetes panel 05/27/19 05/28/19 Range/Units 13:57 05:47 Sodium 137 140 (137-145) mmol/L Potassium 3.7 4.0 (3.6-5.0) mmol/L Chloride 101.2 110.2 H (98-107) mmol/L Carbon Dioxide 22 21 L (22-30) mmol/L BUN 6 L 8 (7-17) mg/dL Creatinine 0.7 0.7 (0.7-1.2) mg/dL Glucose 119 H 132 H (65-100) mg/dL Calcium 9.4 7.8 L D (8.4-10.2) mg/dL AST 13 18 (5-40) units/L ALT 7 7 (7-56) units/L Alkaline Phosphatase 58 43 (35-129) units/L Total Protein 8.0 6.2 L D (6.3-8.2) g/dL Albumin 4.5 3.5 L (3.9-5) g/dL Calcium panel 05/27/19 05/28/19 Range/Units 13:57 05:47 Calcium 9.4 7.8 L D (8.4-10.2) mg/dL Albumin 4.5 3.5 L (3.9-5) g/dL Pituitary panel 05/27/19 05/28/19 Range/Units 13:57 05:47 Sodium 137 140 (137-145) mmol/L Potassium 3.7 4.0 (3.6-5.0) mmol/L Chloride 101.2 110.2 H (98-107) mmol/L Carbon Dioxide 22 21 L (22-30) mmol/L BUN 6 L 8 (7-17) mg/dL Creatinine 0.7 0.7 (0.7-1.2) mg/dL Glucose 119 H 132 H (65-100) mg/dL Calcium 9.4 7.8 L D (8.4-10.2) mg/dL Adrenal panel 05/27/19 05/28/19 Range/Units 13:57 05:47 Sodium 137 140 (137-145) mmol/L Potassium 3.7 4.0 (3.6-5.0) mmol/L Chloride 101.2 110.2 H (98-107) mmol/L Carbon Dioxide 22 21 L (22-30) mmol/L BUN 6 L 8 (7-17) mg/dL Creatinine 0.7 0.7 (0.7-1.2) mg/dL Glucose 119 H 132 H (65-100) mg/dL Calcium 9.4 7.8 L D (8.4-10.2) mg/dL Total Bilirubin 1.20 0.90 (0.1-1.2) mg/dL AST 13 18 (5-40) units/L ALT 7 7 (7-56) units/L Alkaline Phosphatase 58 43 (35-129) units/L Total Protein 8.0 6.2 L D (6.3-8.2) g/dL Albumin 4.5 3.5 L (3.9-5) g/dL
--- NOTE | 2019-05-28 12:57 | Consultation ---
History of Present Illness - Reason for Consult Consult date: 05/28/19 - History of Present Illness 34 yo F PMhx UTI presented to the ER with complaints of 1 day of severe 10/10 abdominal pain which began rapidly and was quickly progressive. Pain was valdez- abdominal and radiated to the back and had associated nausea and vomiting. A CT revealed pneumatosis intestinalis with questionable ischemia, and she was taken to the OR for an ex-lap. In the OR, a lavage and exploration was performed. No ischemia was seen during the operation, and a drain was placed. Numerous omental adhesions were seen at the time. She is currently recovering and reports well controlled abdominal pain. Boyfriend notes they had a BBQ before her symptoms began, where he developed N/V/D, and then she developed the same. Afebrile since admission with a white count of 14. currently receiving cefepime and Flagyl. Blood and intra-operative cultures are pending. Imaging personally reviewed: CTAP: jejunal enteritis, penumatosis intestinalis Review of Systems: Bold if positive, otherwise negative General: fevers, chills, rigors HEENT: visual disturbance, diplopia, eye pain Respiratory: cough, sputum, hemoptysis, shortness of breath Cardiovascular: chest pain, syncope Gastrointestinal: nausea, vomiting, diarrhea, abdominal pain Genitourinary: dysuria, hematuria, flank pain Musculoskeletal: neck pain, back pain, joint pain, edema Neurologic: headaches, seizures Hematologic: easy bruising or bleeding Endocrine: night sweats, acute weight loss Skin: rash, jaundice, redness Psychiatric: suicidal, homicidal ideation Past History Past Medical History: No medical history, other (reviewed) Past Surgical History: Social history: single. denies: smoking, alcohol abuse, prescription drug abuse, IV drug use Family history: no significant family history (reviewed) Medications and Allergies Allergies Allergy/AdvReac Type Severity Reaction Status Date / Time No Known Allergies Allergy Unverified 05/27/19 13:45 Home Medications Medication Instructions Recorded Confirmed Last Taken Type No Known Home Medications [No 05/27/19 05/27/19 Unknown History Reported Home Medications] Active Meds: Active Medications Acetaminophen (Tylenol) 650 mg PO Q4H PRN PRN Reason: Pain MILD(1-3)/Fever >100.5/SEWELL Albuterol (Proventil) 2.5 mg IH Q4HRT PRN PRN Reason: Shortness Of Breath Enoxaparin Sodium (Enoxaparin) 40 mg SUB-Q QDAY@2200 CAL Hydromorphone HCl (Dilaudid) 0.5 mg IV Q6H PRN PRN Reason: Pain , Severe (7-10) Last Admin: 05/28/19 09:28 Dose: 0.5 mg Documented by: Hydromorphone HCl (Dilaudid) 0.5 mg IV Q10MIN PRN PRN Reason: Pain , Severe (7-10) Cefepime HCl (Cefepime/Ns 2 Gm/100 Ml) 2 gm in 100 mls @ 200 mls/hr IV Q8HR CAL; Protocol Last Admin: 05/28/19 06:00 Dose: 200 mls/hr Documented by: Metronidazole (Flagyl 500 Mg/100 Ml) 500 mg in 100 mls @ 100 mls/hr IV Q8HR CAL; Protocol Last Admin: 05/28/19 05:58 Dose: 100 mls/hr Documented by: Dextrose/Sodium Chloride (D5ns) 1,000 mls @ 100 mls/hr IV DIRECT CAL Last Admin: 05/28/19 02:00 Dose: 100 mls/hr Documented by: Metoclopramide HCl (Reglan) 10 mg IV Q6H PRN PRN Reason: Nausea And Vomiting Last Admin: 05/28/19 00:37 Dose: 10 mg Documented by: Ondansetron HCl (Zofran) 4 mg IV Q8H PRN PRN Reason: Nausea And Vomiting Last Admin: 05/27/19 18:10 Dose: 4 mg Documented by: Sodium Chloride (Sodium Chloride Flush Syringe 10 Ml) [address] [facility] Last Admin: 05/28/19 00:46 Dose: 10 ml Documented by: Sodium Chloride (Sodium Chloride Flush Syringe 10 Ml) 10 ml IV PRN PRN PRN Reason: LINE FLUSH Physical Examination - Physical Exam Narrative exam: Constitutional: Alert, cooperative. No acute distress Head, Ears, Nose: Normocephalic, atraumatic. External ears, nose normal Eyes: Conjunctivae/corneas clear. No icterus. No ptosis. Neck: Supple, no meningeal signs Oral: dentition fair, no thrush Cardiovascular: S1, S2 normal. Respiratory: Good air entry, clear to auscultation bilaterally GI: Soft, + tender; bowel sounds normal. No peritoneal signs. Drain in place. Musculoskeletal: No pedal edema, no cyanosis. Skin: No rash or abscess Hem/Lymphatic: No palpable cervical or supraclavicular nodes. No lymphangitis Psych: Mood ok. Affect normal Neurological: Awake, alert, oriented. No gross abnormality - Constitutional Vitals: Vital Signs Temp Pulse Resp BP Pulse Ox 98.3 F 63 18 100/56 100 05/28/19 11:23 05/28/19 11:23 05/28/19 11:23 05/28/19 11:23 05/28/19 11:23 Temperature -Last 24 Hours Temperature 98.3 F Temperature 98.0 F Temperature 98.1 F Temperature 98.5 F Temperature 98.9 F Temperature 98.8 F Temperature 98.3 F Temperature 97.9 F Results - Labs CBC & Chem 7: 05/28/19 05:47 05/28/19 05:47 Labs: Abnormal lab results 05/27/19 05/27/19 05/27/19 Range/Units 13:57 13:57 Unknown WBC 13.1 H (4.5-11.0) K/mm3 RBC 3.61 L (3.65-5.03) M/mm3 Hgb (10.1-14.3) gm/dl Hct (30.3-42.9) % MCV 101 H (79-97) fl MCH 34 H (28-32) pg Plt Count (140-440) K/mm3 Lymph % (Auto) 6.6 L (13.4-35.0) % Lymph # 0.9 L (1.2-5.4) K/mm3 Seg Neutrophils % 89.8 H (40.0-70.0) % Seg Neuts % (Manual) 87.0 H (40.0-70.0) % Lymphocytes % (Manual) 7.0 L (13.4-35.0) % Seg Neutrophils # 12.4 H (1.8-7.7) K/mm3 Seg Neutrophils # Man 11.4 H (1.8-7.7) K/mm3 Lymphocytes # (Manual) 0.9 L (1.2-5.4) K/mm3 Chloride (98-107) mmol/L Carbon Dioxide (22-30) mmol/L BUN 6 L (7-17) mg/dL Glucose 119 H (65-100) mg/dL Calcium (8.4-10.2) mg/dL Total Protein (6.3-8.2) g/dL Albumin (3.9-5) g/dL Lipase 11 L (13-60) units/L Ur Specific [place] 1.040 H (1.003-1.030) Urine WBC (Auto) 8.0 H (0.0-6.0) /HPF 05/28/19 05/28/19 Range/Units 05:47 05:47 WBC 14.1 H (4.5-11.0) K/mm3 RBC 2.83 L (3.65-5.03) M/mm3 Hgb 9.9 L (10.1-14.3) gm/dl Hct 29.1 L D (30.3-42.9) % MCV 103 H (79-97) fl MCH 35 H (28-32) pg Plt Count 137 L (140-440) K/mm3 Lymph % (Auto) (13.4-35.0) % Lymph # (1.2-5.4) K/mm3 Seg Neutrophils % (40.0-70.0) % Seg Neuts % (Manual) 94.0 H (40.0-70.0) % Lymphocytes % (Manual) 1.0 L (13.4-35.0) % Seg Neutrophils # (1.8-7.7) K/mm3 Seg Neutrophils # Man 13.3 H (1.8-7.7) K/mm3 Lymphocytes # (Manual) 0.1 L (1.2-5.4) K/mm3 Chloride 110.2 H (98-107) mmol/L Carbon Dioxide 21 L (22-30) mmol/L BUN (7-17) mg/dL Glucose 132 H (65-100) mg/dL Calcium 7.8 L D (8.4-10.2) mg/dL Total Protein 6.2 L D (6.3-8.2) g/dL Albumin 3.5 L (3.9-5) g/dL Lipase (13-60) units/L Ur Specific [place] (1.003-1.030) Urine WBC (Auto) (0.0-6.0) /HPF Assessment and Plan Cultures: 05/27 blood cultures - NGTD 05/27 surgical culture - NGTD; moderate PMNs A/P: 34 yo F no PMHx admitted to the hospital for surgical exploration of pneumatosis intestinalis. 1. Pneumatosis intestinalis - Unclear etiology, and there rarely is a true cause elucidated. Agree with empiric cefepime and metronidazole for now, will add fluconazole for a short course. If cultures remain negative she will likely need long-term metronidazole PO as an outpatient with a follow up CT. Possible secondary to food borne illness 2. Omental adhesions - agree with evaluating for gonorrhea/chlamydia. Will follow up with treatment recommendations if positive. Recs: - continue cefepime 2g q8h - continue metronidazole 500mg q8h - start fluconazole 400mg q24 - follow up blood and surgical cultures - follow up urine G&C NAAT Thank you for the consult, we will continue to follow. MD [facility] M: [phone] O: [phone] F: [phone]
[2019-05-28] MEDS: KETOROLAC 30 MG/1 ML INJ IV SCH ×3 (16:00→23:19)
[2019-05-28] MEDS: ONDANSETRON 4 MG/2 ML INJ IV PRN ×2 (16:40→16:41)
[2019-05-28] MEDS: FLUCONAZOLE 200 MG TAB PO SCH (19:30)
--- NOTE | 2019-05-28 19:32 | Operative Report ---
PREOPERATIVE DIAGNOSIS: Peritonitis, pneumatosis of the cecum. POSTOPERATIVE DIAGNOSIS: Peritonitis, pneumatosis of the cecum. FINDINGS: 1. Small amount of fluid resembling chyle in the abdomen coating small bowel. 2. Small bowel appeared unremarkable without evidence of dilatation. 3. Gallbladder, liver, omentum, stomach, duodenum unremarkable. 4. Distended fluid filled cecum, ascending colon, transverse colon, but no evidence of ischemia or necrosis. 5. Omental adhesions to the anterior abdominal wall in the right lower quadrant and cecum and also to the gallbladder. 6. Normal appendix. PROCEDURE: Diagnostic laparoscopy, peritoneal lavage and placement of drain. ANESTHESIA: General endotracheal anesthesia, local. SURGEON: Donna Field DO. [employer] MANAGER: Elissa Metcalf MD ESTIMATED BLOOD LOSS: Minimal. PATHOLOGY: Intraperitoneal fluid cultures. SPECIMEN DISPOSITION: To lab. CONDITION ON DISCHARGE: The patient is stable to PACU. HISTORY OF PRESENT ILLNESS AND INDICATION: The patient is a 34-year-old female who presented to the Emergency Room with severe abdominal pain of sudden onset. It started following eating possibly tainted French food. The patient had nausea and vomiting. On physical exam, the patient had signs of peritonitis and CT scan showed jejunal enteritis as well as pneumatosis of the cecum and ascending colon. Due to the patient's peritoneal signs on physical exam as well as CAT scan findings, it was recommended the patient have emergent laparoscopy, possible exploratory laparotomy, possible bowel resection, possible ostomy. All risks, benefits and alternatives to surgery were discussed with the patient and questions answered. Consent obtained. PROCEDURE IN DETAIL: The patient was identified in the preoperative area, taken back to the operating room and placed on the operating table in supine position. After anesthesia was induced, a Bridges catheter was sterilely placed by the circulating nurse. The abdomen was then prepped and draped in the usual sterile fashion. Timeout was performed. Local anesthetic was infiltrated into the skin at all incision sites. A 5 mm incision was made above the umbilicus through which a Veress needle was inserted. The Veress needle positioning was confirmed using the saline drop test and the abdomen insufflated to 15 mmHg. Once the abdomen was insufflated Veress needle was removed and a 5 mm Optiview trocar was placed through this incision. On immediate examination of the abdomen, there was no underlying injury to any of the abdominal structures. The right lower quadrant was visualized and there were omental adhesions to the anterior abdominal wall and cecum in this area. On examination of the right upper quadrant, there appeared to be omental adhesions to the gallbladder as well as a very scant amount of yellow fluid inferior to the right lobe of the liver near the gallbladder. At this time, an additional 5 mm suprapubic and 5 mm left lower quadrant trocars were placed under direct visualization. The adhesions from the omentum to the anterior abdominal wall in the right lower quadrant were carefully taken down using the Harmonic scalpel. The cecum and ascending colon were carefully examined and there was no evidence of ischemia or necrosis. The remainder of the colon was also examined and the transverse colon also appeared to be distended and fluid filled and the remainder of the colon was unremarkable. The appendix was seen and was normal. There was no free fluid in the pelvis. We then performed a systematic examination of all 4 quadrants. The right upper quadrant was seen and as mentioned there was a scant amount of yellow fluid inferior to the right lobe of the liver near the gallbladder. The gallbladder appeared unremarkable as well as the right lobe of the liver. The fluid was sampled for cultures. The left upper quadrant was visualized and was unremarkable. The stomach was not distended and did not display any signs of ischemia. At this time, the omentum was retracted above the transverse colon in order to visualize the small bowel. The small bowel loops did not appear distended or inflamed. However, there was a thin layer of the yellow fluid coating the small bowel. The small bowel was ran from the ligament of Treitz towards the terminal ileum and there did not appear to be any injury to the small bowel. At this point, there was no surgical evidence of injury to the small bowel or colon and therefore, no indication for resection. Therefore, it was decided to perform peritoneal lavage of the entire abdomen in order to facilitate drainage of the intra-abdominal fluid. This was performed until the irrigant returned clear. A 19-Hung[place] Onur drain was then inserted into the abdomen and brought out through the left lower quadrant port. This was positioned into the pelvis. The drain was sutured to the skin using a 3-0 nylon drain stitch. The remainder of the ports were then removed under direct visualization. The abdomen desufflated. The skin incisions were once again infiltrated with local anesthetic and the skin approximated using 4-0 Monocryl subcuticular stitches and skin glue. At the end of the case, all sponge, instrument, sharp counts were correct x 2. The Bridges catheter was removed. The patient was awoken from anesthesia, extubated, and taken to PACU in stable condition. JOB# [id number] [place]
[2019-05-28] MEDS: ENOXAPARIN 40 MG/0.4 ML INJ SUB-Q SCH (21:29)
[2019-05-29] MEDS: HYDROmorphone 1 MG/1 ML INJ IV PRN ×3 (00:43→19:52)
[2019-05-29] MEDS: D5W/0.9% NACL 1,000 ML IV SCH ×2 (04:28→19:56)
[2019-05-29] MEDS: CEFEPIME/NS 2 GM/100 ML 2 GM/100 ML BAG IV SCH ×3 (06:20→22:03)
[2019-05-29] MEDS: metroNIDAZOLE/NS 500 MG/100 ML 500 MG/100 ML BAG IV SCH ×3 (06:44→22:59)
[2019-05-29] MEDS: KETOROLAC 30 MG/1 ML INJ IV SCH ×2 (06:46→14:54)
--- NOTE | 2019-05-29 07:28 | Progress Note ---
Assessment and Plan Assessment and plan: 34-year-old woman with no significant past medical history who presents to the hospital with abdominal pain. Diagnosis Cecal pneumatosis with thickened jejunum Colitis and jejunitis Sepsis UTI? highly doubt plan Status post ex lap 05/27 which showed small amount of few fluid resembling chyle in the abdomen coating small bowel, omental adhesions anterior abdominal wall and right lower quadrant and cecum. Did not tolerate clear liquid diet, will make n.p.o. with sips of water as needed -Currently on empiric antibiotics, is likely due to an infectious process, ID consult appreciated Follow-up Chlamydia gonorrhea and HIV screen, received 1 g of azithromycin to cover for chlamydia, on broad-spectrum antibiotics which will also cover gonorrhea fup urine cx Dvt ppx- lovenox History Interval history: Complaining of nausea and vomiting. Has not been tolerating diet. No fevers Denies vaginal discharge Abdominal pain feels like a squeezing of her belly, but is improved Hospitalist Physical - Physical exam Narrative exam: General.: Appears ill, toxic appearance HEENT: Moist mucous membranes, extraocular muscles intact, no lymphadenopathy Neck: supple Cardiac: S1-S2 heard Lungs: clear to auscultation bilaterally Abdomen: soft , tenderness around surgical sites, dressing was not removed, nondistended, bowel sounds positive Extremities: no edema clubbing or cyanosis Skin: no rash or lesions Neurologic: no gross focal deficits Psych: calm, and cooperative - Constitutional Vitals: Temp Pulse Resp BP Pulse Ox 98.1 F 54 L 17 119/59 97 05/28/19 23:55 05/28/19 23:55 05/29/19 06:12 05/29/19 06:12 05/29/19 06:12 General appearance: Present: severe distress Results - Labs CBC & Chem 7: 05/28/19 05:47 05/28/19 05:47 Labs: Laboratory Last Values WBC 14.1 K/mm3 (4.5-11.0) H 05/28/19 05:47 RBC 2.83 M/mm3 (3.65-5.03) L 05/28/19 05:47 Hgb 9.9 gm/dl (10.1-14.3) L 05/28/19 05:47 Hct 29.1 % (30.3-42.9) L D 05/28/19 05:47 MCV 103 fl (79-97) H 05/28/19 05:47 MCH 35 pg (28-32) H 05/28/19 05:47 MCHC 34 % (30-34) 05/28/19 05:47 RDW 13.8 % (13.2-15.2) 05/28/19 05:47 Plt Count 137 K/mm3 (140-440) L 05/28/19 05:47 Lymph % (Auto) 6.6 % (13.4-35.0) L 05/27/19 13:57 [place] % (Auto) 3.0 % (0.0-7.3) 05/27/19 13:57 Eos % (Auto) 0.1 % (0.0-4.3) 05/27/19 13:57 Baso % (Auto) 0.5 % (0.0-1.8) 05/27/19 13:57 Lymph # 0.9 K/mm3 (1.2-5.4) L 05/27/19 13:57 [place] # 0.4 K/mm3 (0.0-0.8) 05/27/19 13:57 Eos # 0.0 K/mm3 (0.0-0.4) 05/27/19 13:57 Baso # 0.1 K/mm3 (0.0-0.1) 05/27/19 13:57 Add Manual Diff Complete 05/28/19 05:47 Total Counted 100 05/28/19 05:47 Seg Neutrophils % Placement Secretary 05/28/19 05:47 Seg Neuts % (Manual) 94.0 % (40.0-70.0) H 05/28/19 05:47 Band Neutrophils % 0 % 05/28/19 05:47 Lymphocytes % (Manual) 1.0 % (13.4-35.0) L 05/28/19 05:47 Reactive Lymphs % (Man) 0 % 05/28/19 05:47 Monocytes % (Manual) 4.0 % (0.0-7.3) 05/28/19 05:47 Eosinophils % (Manual) 0 % (0.0-4.3) 05/28/19 05:47 Basophils % (Manual) 0 % (0.0-1.8) 05/28/19 05:47 Metamyelocytes % 1.0 % 05/28/19 05:47 Myelocytes % 0 % 05/28/19 05:47 Promyelocytes % 0 % 05/28/19 05:47 Blast Cells % 0 % 05/28/19 05:47 Nucleated RBC % Not Reportable 05/28/19 05:47 Seg Neutrophils # 12.4 K/mm3 (1.8-7.7) H 05/27/19 13:57 Seg Neutrophils # Man 13.3 K/mm3 (1.8-7.7) H 05/28/19 05:47 Band Neutrophils # 0.0 K/mm3 05/28/19 05:47 Lymphocytes # (Manual) 0.1 K/mm3 (1.2-5.4) L 05/28/19 05:47 Abs React Lymphs (Man) 0.0 K/mm3 05/28/19 05:47 Monocytes # (Manual) 0.6 K/mm3 (0.0-0.8) 05/28/19 05:47 Eosinophils # (Manual) 0.0 K/mm3 (0.0-0.4) 05/28/19 05:47 Basophils # (Manual) 0.0 K/mm3 (0.0-0.1) 05/28/19 05:47 Metamyelocytes # 0.1 K/mm3 05/28/19 05:47 Myelocytes # 0.0 K/mm3 05/28/19 05:47 Promyelocytes # 0.0 K/mm3 05/28/19 05:47 Blast Cells # 0.0 K/mm3 05/28/19 05:47 WBC Morphology Not Reportable 05/28/19 05:47 Hypersegmented Neuts Not Reportable 05/28/19 05:47 Hyposegmented Neuts Not Reportable 05/28/19 05:47 Hypogranular Neuts Not Reportable 05/28/19 05:47 Smudge Cells Not Reportable 05/28/19 05:47 Toxic Granulation Not Reportable 05/28/19 05:47 Toxic Vacuolation Not Reportable 05/28/19 05:47 Dohle Bodies Not Reportable 05/28/19 05:47 Pelger-Huet Anomaly Not Reportable 05/28/19 05:47 [place] Rods Not Reportable 05/28/19 05:47 Platelet Estimate Consistent w auto 05/28/19 05:47 Clumped Platelets Not Reportable 05/28/19 05:47 Plt Clumps, EDTA Not Reportable 05/28/19 05:47 Large Platelets Not Reportable 05/28/19 05:47 Giant Platelets Not Reportable 05/28/19 05:47 Platelet Satelliting Not Reportable 05/28/19 05:47 Plt Morphology Comment Not Reportable 05/28/19 05:47 RBC Morphology Not Reportable 05/28/19 05:47 Dimorphic RBCs Not Reportable 05/28/19 05:47 Polychromasia Not Reportable 05/28/19 05:47 Hypochromasia Not Reportable 05/28/19 05:47 Poikilocytosis Not Reportable 05/28/19 05:47 Anisocytosis Not Reportable 05/28/19 05:47 Microcytosis Not Reportable 05/28/19 05:47 Macrocytosis Rare 05/28/19 05:47 Spherocytes Not Reportable 05/28/19 05:47 Pappenheimer Bodies Not Reportable 05/28/19 05:47 Sickle Cells Not Reportable 05/28/19 05:47 Target Cells Not Reportable 05/28/19 05:47 Tear Drop Cells Not Reportable 05/28/19 05:47 Ovalocytes Few 05/28/19 05:47 Helmet Cells Not Reportable 05/28/19 05:47 [place] Bodies Not Reportable 05/28/19 05:47 [place] Rings Not Reportable 05/28/19 05:47 Peter Cells Not Reportable 05/28/19 05:47 Bite Cells Not Reportable 05/28/19 05:47 Crenated Cell Not Reportable 05/28/19 05:47 Elliptocytes Not Reportable 05/28/19 05:47 Acanthocytes (Spur) Not Reportable 05/28/19 05:47 Rouleaux Not Reportable 05/28/19 05:47 Hemoglobin C Crystals Not Reportable 05/28/19 05:47 Schistocytes Not Reportable 05/28/19 05:47 Malaria parasites Not Reportable 05/28/19 05:47 Jony Bodies Not Reportable 05/28/19 05:47 Hem Pathologist Commnt No 05/28/19 05:47 Sodium 140 mmol/L (137-145) 05/28/19 05:47 Potassium 4.0 mmol/L (3.6-5.0) 05/28/19 05:47 Chloride 110.2 mmol/L (98-107) H 05/28/19 05:47 Carbon Dioxide 21 mmol/L (22-30) L 05/28/19 05:47 Anion Gap 13 mmol/L 05/28/19 05:47 BUN 8 mg/dL (7-17) 05/28/19 05:47 Creatinine 0.7 mg/dL (0.7-1.2) 05/28/19 05:47 Estimated GFR > 60 ml/min 05/28/19 05:47 BUN/Creatinine Ratio 11 % 05/28/19 05:47 Glucose 132 mg/dL (65-100) H 05/28/19 05:47 Lactic Acid 0.90 mmol/L (0.7-2.0) 05/27/19 19:53 Calcium 7.8 mg/dL (8.4-10.2) L D 05/28/19 05:47 Total Bilirubin 0.90 mg/dL (0.1-1.2) 05/28/19 05:47 AST 18 units/L (5-40) 05/28/19 05:47 ALT 7 units/L (7-56) 05/28/19 05:47 Alkaline Phosphatase 43 units/L (35-129) 05/28/19 05:47 Total Protein 6.2 g/dL (6.3-8.2) L D 05/28/19 05:47 Albumin 3.5 g/dL (3.9-5) L 05/28/19 05:47 Albumin/Globulin Ratio 1.3 % 05/28/19 05:47 Lipase 11 units/L (13-60) L 05/27/19 13:57 HCG, Qual Negative (Negative) 05/27/19 13:57 Urine Color [place] (Yellow) 05/27/19 Unknown Urine Turbidity Slightly-cloudy (Clear) 05/27/19 Unknown Urine pH 6.0 (5.0-7.0) 05/27/19 Unknown Ur Specific [place] 1.040 (1.003-1.030) H 05/27/19 Unknown Urine Protein 30 mg/dl mg/dL (Negative) 05/27/19 Unknown Urine Glucose (UA) Neg mg/dL (Negative) 05/27/19 Unknown Urine Ketones 20 mg/dL (Negative) 05/27/19 Unknown Urine Blood Lg (Negative) 05/27/19 Unknown Urine Nitrite Neg (Negative) 05/27/19 Unknown Urine Bilirubin Neg (Negative) 05/27/19 Unknown Urine Urobilinogen 4.0 mg/dL (<2.0) 05/27/19 Unknown Ur Leukocyte Esterase Sm (Negative) 05/27/19 Unknown Urine WBC (Auto) 8.0 /HPF (0.0-6.0) H 05/27/19 Unknown Urine RBC (Auto) 7.0 /HPF (0.0-6.0) 05/27/19 Unknown U Epithel Cells (Auto) 12.0 /HPF (0-13.0) 05/27/19 Unknown Urine Bacteria (Auto) 1+ /HPF (Negative) 05/27/19 Unknown Urine Mucus 3+ /HPF 05/27/19 Unknown Active Medications - Current Medications Current Medications: Generic Name Dose Route Start Last Admin Trade Name Freq PRN Reason Stop Dose Admin Acetaminophen 650 mg 05/27/19 16:41 Tylenol PO Q4H PRN Pain MILD(1-3)/Fever >100.5/SEWELL Albuterol 2.5 mg 05/27/19 16:41 Proventil IH Q4HRT PRN Shortness Of Breath Enoxaparin Sodium 40 mg 05/28/19 22:00 05/28/19 21:29 Enoxaparin SUB-Q 40 mg QDAY@2200 CAL Administration Fluconazole 400 mg 05/28/19 18:00 05/28/19 19:30 Diflucan PO 400 mg QDAY CAL Administration Hydromorphone HCl 0.5 mg 05/27/19 16:42 05/29/19 00:43 Dilaudid IV 0.5 mg Q6H PRN Administration Pain , Severe (7-10) Hydromorphone HCl 0.5 mg 05/27/19 21:16 Dilaudid IV Q10MIN PRN Pain , Severe (7-10) Cefepime HCl 2 gm in 100 mls @ 200 mls/hr 05/27/19 17:00 05/29/19 06:20 Cefepime/Ns 2 Gm/100 Ml IV 200 mls/hr Q8HR CAL Administration Protocol Metronidazole 500 mg in 100 mls @ 100 mls/hr 05/27/19 17:00 05/29/19 06:44 Flagyl 500 Mg/100 Ml IV 100 mls/hr Q8HR CAL Administration Protocol Dextrose/Sodium Chloride 1,000 mls @ 100 mls/hr 05/27/19 23:00 05/29/19 04:28 D5ns IV 100 mls/hr DIRECT CAL Administration Azithromycin 1,000 mg/ Sodium 250 mls @ 250 mls/hr 05/29/19 10:00 Chloride IV Q24HR CAL Protocol Ketorolac Tromethamine 30 mg 05/28/19 15:00 05/29/19 06:46 Toradol IV 06/02/19 14:59 30 mg Q8H CAL Administration Metoclopramide HCl 10 mg 05/27/19 22:07 05/28/19 00:37 Reglan IV 10 mg Q6H PRN Administration Nausea And Vomiting Ondansetron HCl 4 mg 05/27/19 16:41 05/28/19 16:41 Zofran IV 4 mg Q8H PRN Administration Nausea And Vomiting Sodium Chloride 10 ml 05/27/19 22:00 05/28/19 21:30 Sodium Chloride Flush Syringe 10 Ml IV 10 ml BID CAL Administration Sodium Chloride 10 ml 05/27/19 16:41 Sodium Chloride Flush Syringe 10 Ml IV PRN PRN LINE FLUSH
[2019-05-29] MEDS ORDERED: AZITHROMYCIN IV ONE (10:00)
[2019-05-29] MEDS ORDERED: SODIUM CHLORIDE 0.9% IV ONE (10:00)
[2019-05-29] MEDS: FLUCONAZOLE 200 MG TAB PO SCH (10:34)
[2019-05-29] MEDS: ONDANSETRON 4 MG/2 ML INJ IV PRN (11:06)
[2019-05-29] MEDS: PROMETHAZINE 25 MG TAB PO SCH (12:27)
--- NOTE | 2019-05-29 12:45 | Progress Note ---
Assessment and Plan - Patient Problems (1) Peritonitis (acute) generalized Current Visit: Yes Status: Acute Plan to address problem: 34 yo F s/p Diagnostic laparoscopy, peritoneal lavage, placement of drain, POD 2. Feels better today Plan: 1. try soft diet today. Will give phenergan prior to diflucan to help with nausea from med 2. IVF 3. prn pain control, toradol 4. DVT ppx 5. monitor KATHYA drain output will remove if remains low output and serous 6. STD testing ordered by 1' service 7. abx for UTI 8. OOB/ambulate Will follow. Thank you, please call with questions. Subjective Date of service: 05/29/19 Patient Reports: Positive: no new complaints, feels better, pain is less, tolerating liquids well, flatus, no bowel movement, nausea (only after diflucan), afebrile Objective Vital Signs - 12hr 05/29/19 05/29/19 05/29/19 06:12 07:48 09:57 Temperature 97.9 F Pulse Rate 66 Respiratory 17 18 18 Rate Blood Pressure 111/59 Blood Pressure 119/59 [Left] O2 Sat by Pulse 97 100 Oximetry 05/29/19 11:31 Temperature 98.0 F Pulse Rate 71 Respiratory 18 Rate Blood Pressure 117/65 Blood Pressure [Left] O2 Sat by Pulse 100 Oximetry - General physical appearance no distress, no pain, other (appears apprehensive) - Eyes normal occular movement - Respiratory normal expansion, normal respiratory effort - Abdomen soft, tender (in lower abdomen), bowel sounds hypoactive, distended, guarding, not rigid, surgical scars (C/D/I), other (KATHYA with minimal serous drainage) - Integumentary no rash, no growths, no abnormal pigmentation - Psychiatric oriented to time, oriented to person, oriented to place, speech is normal, memory intact - Labs 05/28/19 05:47 05/28/19 05:47
[2019-05-29] MEDS: METOCLOPRAMIDE 10 MG/2 ML INJ IV PRN (19:48)
[2019-05-29] MEDS: ENOXAPARIN 40 MG/0.4 ML INJ SUB-Q SCH (22:03)
[2019-05-30] MEDS: KETOROLAC 30 MG/1 ML INJ IV SCH ×4 (01:03→22:29)
[2019-05-30] MEDS: CEFEPIME/NS 2 GM/100 ML 2 GM/100 ML BAG IV SCH ×3 (05:31→21:06)
[2019-05-30] MEDS: metroNIDAZOLE/NS 500 MG/100 ML 500 MG/100 ML BAG IV SCH ×3 (06:15→21:06)
[2019-05-30] MEDS: HYDROmorphone 1 MG/1 ML INJ IV PRN ×2 (08:56→18:46)
[2019-05-30] MEDS: PROMETHAZINE 25 MG TAB PO SCH (09:07)
[2019-05-30] MEDS: FLUCONAZOLE 200 MG TAB PO SCH (11:47)
--- NOTE | 2019-05-30 11:47 | Progress Note ---
Assessment and Plan Assessment and plan: 34-year-old woman with no significant past medical history who presents to the hospital with abdominal pain. Diagnosis Cecal pneumatosis with thickened jejunum Colitis and jejunitis Sepsis UTI ruled out, urine culture negative plan Status post ex lap 05/27 which showed small amount of few fluid resembling chyle in the abdomen coating small bowel, omental adhesions anterior abdominal wall and right lower quadrant and cecum. Diet advancement per general surgery -Currently on empiric antibiotics, is likely due to an infectious process, ID consult appreciated Follow-up Chlamydia gonorrhea and HIV screen, status post 1 g of azithromycin to cover for chlamydia, on broad-spectrum antibiotics which will also cover gonorrhea Dvt ppx- lovenox History Interval history: Denies nausea vomiting or abdominal pain today No fevers Denies vaginal discharge Abdominal pain feels like a squeezing of her belly, but is improved Hospitalist Physical - Physical exam Narrative exam: General.: Nontoxic appearance HEENT: Moist mucous membranes, extraocular muscles intact, no lymphadenopathy Neck: supple Cardiac: S1-S2 heard Lungs: clear to auscultation bilaterally Abdomen: soft , tenderness around surgical sites, dressing was not removed, non distended, bowel sounds positive Extremities: no edema clubbing or cyanosis Skin: no rash or lesions Neurologic: no gross focal deficits Psych: Patient is sad today, she states that it is a personal issue - Constitutional Vitals: Temp Pulse Resp BP Pulse Ox 98.1 F 76 18 126/68 100 05/30/19 07:42 05/30/19 07:42 05/30/19 07:42 05/30/19 07:42 05/30/19 09:17 General appearance: Present: severe distress Results - Labs CBC & Chem 7: 05/28/19 05:47 05/28/19 05:47 Labs: Laboratory Last Values WBC 14.1 K/mm3 (4.5-11.0) H 05/28/19 05:47 RBC 2.83 M/mm3 (3.65-5.03) L 05/28/19 05:47 Hgb 9.9 gm/dl (10.1-14.3) L 05/28/19 05:47 Hct 29.1 % (30.3-42.9) L D 05/28/19 05:47 MCV 103 fl (79-97) H 05/28/19 05:47 MCH 35 pg (28-32) H 05/28/19 05:47 MCHC 34 % (30-34) 05/28/19 05:47 RDW 13.8 % (13.2-15.2) 05/28/19 05:47 Plt Count 137 K/mm3 (140-440) L 05/28/19 05:47 Lymph % (Auto) 6.6 % (13.4-35.0) L 05/27/19 13:57 [place] % (Auto) 3.0 % (0.0-7.3) 05/27/19 13:57 Eos % (Auto) 0.1 % (0.0-4.3) 05/27/19 13:57 Baso % (Auto) 0.5 % (0.0-1.8) 05/27/19 13:57 Lymph # 0.9 K/mm3 (1.2-5.4) L 05/27/19 13:57 [place] # 0.4 K/mm3 (0.0-0.8) 05/27/19 13:57 Eos # 0.0 K/mm3 (0.0-0.4) 05/27/19 13:57 Baso # 0.1 K/mm3 (0.0-0.1) 05/27/19 13:57 Add Manual Diff Complete 05/28/19 05:47 Total Counted 100 05/28/19 05:47 Seg Neutrophils % Integrity Assessor 05/28/19 05:47 Seg Neuts % (Manual) 94.0 % (40.0-70.0) H 05/28/19 05:47 Band Neutrophils % 0 % 05/28/19 05:47 Lymphocytes % (Manual) 1.0 % (13.4-35.0) L 05/28/19 05:47 Reactive Lymphs % (Man) 0 % 05/28/19 05:47 Monocytes % (Manual) 4.0 % (0.0-7.3) 05/28/19 05:47 Eosinophils % (Manual) 0 % (0.0-4.3) 05/28/19 05:47 Basophils % (Manual) 0 % (0.0-1.8) 05/28/19 05:47 Metamyelocytes % 1.0 % 05/28/19 05:47 Myelocytes % 0 % 05/28/19 05:47 Promyelocytes % 0 % 05/28/19 05:47 Blast Cells % 0 % 05/28/19 05:47 Nucleated RBC % Not Reportable 05/28/19 05:47 Seg Neutrophils # 12.4 K/mm3 (1.8-7.7) H 05/27/19 13:57 Seg Neutrophils # Man 13.3 K/mm3 (1.8-7.7) H 05/28/19 05:47 Band Neutrophils # 0.0 K/mm3 05/28/19 05:47 Lymphocytes # (Manual) 0.1 K/mm3 (1.2-5.4) L 05/28/19 05:47 Abs React Lymphs (Man) 0.0 K/mm3 05/28/19 05:47 Monocytes # (Manual) 0.6 K/mm3 (0.0-0.8) 05/28/19 05:47 Eosinophils # (Manual) 0.0 K/mm3 (0.0-0.4) 05/28/19 05:47 Basophils # (Manual) 0.0 K/mm3 (0.0-0.1) 05/28/19 05:47 Metamyelocytes # 0.1 K/mm3 05/28/19 05:47 Myelocytes # 0.0 K/mm3 05/28/19 05:47 Promyelocytes # 0.0 K/mm3 05/28/19 05:47 Blast Cells # 0.0 K/mm3 05/28/19 05:47 WBC Morphology Not Reportable 05/28/19 05:47 Hypersegmented Neuts Not Reportable 05/28/19 05:47 Hyposegmented Neuts Not Reportable 05/28/19 05:47 Hypogranular Neuts Not Reportable 05/28/19 05:47 Smudge Cells Not Reportable 05/28/19 05:47 Toxic Granulation Not Reportable 05/28/19 05:47 Toxic Vacuolation Not Reportable 05/28/19 05:47 Dohle Bodies Not Reportable 05/28/19 05:47 Pel[place]uet Anomaly Not Reportable 05/28/19 05:47 [place] Rods Not Reportable 05/28/19 05:47 Platelet Estimate Consistent w auto 05/28/19 05:47 Clumped Platelets Not Reportable 05/28/19 05:47 Plt Clumps, EDTA Not Reportable 05/28/19 05:47 Large Platelets Not Reportable 05/28/19 05:47 Giant Platelets Not Reportable 05/28/19 05:47 Platelet Satelliting Not Reportable 05/28/19 05:47 Plt Morphology Comment Not Reportable 05/28/19 05:47 RBC Morphology Not Reportable 05/28/19 05:47 Dimorphic RBCs Not Reportable 05/28/19 05:47 Polychromasia Not Reportable 05/28/19 05:47 Hypochromasia Not Reportable 05/28/19 05:47 Poikilocytosis Not Reportable 05/28/19 05:47 Anisocytosis Not Reportable 05/28/19 05:47 Microcytosis Not Reportable 05/28/19 05:47 Macrocytosis Rare 05/28/19 05:47 Spherocytes Not Reportable 05/28/19 05:47 Pappenheimer Bodies Not Reportable 05/28/19 05:47 Sickle Cells Not Reportable 05/28/19 05:47 Target Cells Not Reportable 05/28/19 05:47 Tear Drop Cells Not Reportable 05/28/19 05:47 Ovalocytes Few 05/28/19 05:47 Helmet Cells Not Reportable 05/28/19 05:47 [place] Bodies Not Reportable 05/28/19 05:47 [place] Rings Not Reportable 05/28/19 05:47 Peter Cells Not Reportable 05/28/19 05:47 Bite Cells Not Reportable 05/28/19 05:47 Crenated Cell Not Reportable 05/28/19 05:47 Elliptocytes Not Reportable 05/28/19 05:47 Acanthocytes (Spur) Not Reportable 05/28/19 05:47 Rouleaux Not Reportable 05/28/19 05:47 Hemoglobin C Crystals Not Reportable 05/28/19 05:47 Schistocytes Not Reportable 05/28/19 05:47 Malaria parasites Not Reportable 05/28/19 05:47 Jony Bodies Not Reportable 05/28/19 05:47 Hem Pathologist Commnt No 05/28/19 05:47 Sodium 140 mmol/L (137-145) 05/28/19 05:47 Potassium 4.0 mmol/L (3.6-5.0) 05/28/19 05:47 Chloride 110.2 mmol/L (98-107) H 05/28/19 05:47 Carbon Dioxide 21 mmol/L (22-30) L 05/28/19 05:47 Anion Gap 13 mmol/L 05/28/19 05:47 BUN 8 mg/dL (7-17) 05/28/19 05:47 Creatinine 0.7 mg/dL (0.7-1.2) 05/28/19 05:47 Estimated GFR > 60 ml/min 05/28/19 05:47 BUN/Creatinine Ratio 11 % 05/28/19 05:47 Glucose 132 mg/dL (65-100) H 05/28/19 05:47 Lactic Acid 0.90 mmol/L (0.7-2.0) 05/27/19 19:53 Calcium 7.8 mg/dL (8.4-10.2) L D 05/28/19 05:47 Total Bilirubin 0.90 mg/dL (0.1-1.2) 05/28/19 05:47 AST 18 units/L (5-40) 05/28/19 05:47 ALT 7 units/L (7-56) 05/28/19 05:47 Alkaline Phosphatase 43 units/L (35-129) 05/28/19 05:47 Total Protein 6.2 g/dL (6.3-8.2) L D 05/28/19 05:47 Albumin 3.5 g/dL (3.9-5) L 05/28/19 05:47 Albumin/Globulin Ratio 1.3 % 05/28/19 05:47 Lipase 11 units/L (13-60) L 05/27/19 13:57 HCG, Qual Negative (Negative) 05/27/19 13:57 Urine Color [place] (Yellow) 05/27/19 Unknown Urine Turbidity Slightly-cloudy (Clear) 05/27/19 Unknown Urine pH 6.0 (5.0-7.0) 05/27/19 Unknown Ur Specific [place] 1.040 (1.003-1.030) H 05/27/19 Unknown Urine Protein 30 mg/dl mg/dL (Negative) 05/27/19 Unknown Urine Glucose (UA) Neg mg/dL (Negative) 05/27/19 Unknown Urine Ketones 20 mg/dL (Negative) 05/27/19 Unknown Urine Blood Lg (Negative) 05/27/19 Unknown Urine Nitrite Neg (Negative) 05/27/19 Unknown Urine Bilirubin Neg (Negative) 05/27/19 Unknown Urine Urobilinogen 4.0 mg/dL (<2.0) 05/27/19 Unknown Ur Leukocyte Esterase Sm (Negative) 05/27/19 Unknown Urine WBC (Auto) 8.0 /HPF (0.0-6.0) H 05/27/19 Unknown Urine RBC (Auto) 7.0 /HPF (0.0-6.0) 05/27/19 Unknown U Epithel Cells (Auto) 12.0 /HPF (0-13.0) 05/27/19 Unknown Urine Bacteria (Auto) 1+ /HPF (Negative) 05/27/19 Unknown Urine Mucus 3+ /HPF 05/27/19 Unknown Active Medications - Current Medications Current Medications: Generic Name Dose Route Start Last Admin Trade Name Freq PRN Reason Stop Dose Admin Acetaminophen 650 mg 05/27/19 16:41 Tylenol PO Q4H PRN Pain MILD(1-3)/Fever >100.5/SEWELL Albuterol 2.5 mg 05/27/19 16:41 Proventil IH Q4HRT PRN Shortness Of Breath Enoxaparin Sodium 40 mg 05/28/19 22:00 05/29/19 22:03 Enoxaparin SUB-Q 40 mg QDAY@2200 CAL Administration Fluconazole 400 mg 05/28/19 18:00 05/29/19 10:34 Diflucan PO 400 mg QDAY CAL Administration Hydromorphone HCl 0.5 mg 05/27/19 16:42 05/30/19 08:56 Dilaudid IV 0.5 mg Q6H PRN Administration Pain , Severe (7-10) Cefepime HCl 2 gm in 100 mls @ 200 mls/hr 05/27/19 17:00 05/30/19 05:31 Cefepime/Ns 2 Gm/100 Ml IV 200 mls/hr Q8HR CAL Administration Protocol Metronidazole 500 mg in 100 mls @ 100 mls/hr 05/27/19 17:00 05/30/19 06:15 Flagyl 500 Mg/100 Ml IV 100 mls/hr Q8HR CAL Administration Protocol Dextrose/Sodium Chloride 1,000 mls @ 100 mls/hr 05/27/19 23:00 05/29/19 19:56 D5ns IV 100 mls/hr DIRECT CAL Administration Ketorolac Tromethamine 30 mg 05/28/19 15:00 05/30/19 01:03 EST Toradol IV 06/02/19 14:59 30 mg Q8H CAL Administration Metoclopramide HCl 10 mg 05/27/19 22:07 05/29/19 19:48 Reglan IV 10 mg Q6H PRN Administration Nausea And Vomiting Ondansetron HCl 4 mg 05/27/19 16:41 05/29/19 11:06 Zofran IV 4 mg Q8H PRN Administration Nausea And Vomiting Promethazine HCl 25 mg 05/29/19 12:00 05/30/19 09:07 Phenergan PO 25 mg DAILY CAL Administration Sodium Chloride 10 ml 05/27/19 22:00 05/30/19 09:06 Sodium Chloride Flush Syringe 10 Ml IV 10 ml BID CAL Administration Sodium Chloride 10 ml 05/27/19 16:41 Sodium Chloride Flush Syringe 10 Ml IV PRN PRN LINE FLUSH
--- NOTE | 2019-05-30 13:07 | Progress Note ---
Assessment and Plan - Patient Problems (1) Peritonitis (acute) generalized Current Visit: Yes Status: Acute Plan to address problem: 34 yo F s/p Diagnostic laparoscopy, peritoneal lavage, placement of drain, POD 3. Feels about the same today. The meds continue to make her nauseous. She wants regular food. Will try phenergan supp to see if that works better. Plan: 1. try regular today (patient request. ok for family to bring food). Will give [place] phenergan prior to diflucan to help with nausea from med 2. IVF 3. prn pain control, toradol 4. DVT ppx 5. monitor KATHYA drain output will remove if remains low output and serous 6. STD testing ordered by 1' service 7. abx for UTI 8. OOB/ambulate Will follow. Thank you, please call with questions. Subjective Date of service: 05/30/19 Patient Reports: Positive: pain is less, tolerating liquids well (drinking lots of water), tolerating a regular diet (does not like the taste of soft diet. wants regular food. Able to eat just fine last night. After med this morning, became nauseous), flatus, no bowel movement, vomiting (after Po phenergan this AM. ) Objective Vital Signs - 12hr 05/30/19 05/30/19 05/30/19 04:52 07:42 09:17 Temperature 98.2 F 98.1 F Pulse Rate 64 76 Respiratory 16 18 Rate Blood Pressure 126/63 126/68 O2 Sat by Pulse 99 100 100 Oximetry 05/30/19 11:39 Temperature 98.2 F Pulse Rate 62 Respiratory 18 Rate Blood Pressure 134/78 O2 Sat by Pulse 100 Oximetry - General physical appearance no distress, no pain, other (continues to appear very tired) - Respiratory normal expansion, normal respiratory effort - Abdomen soft, tender (mild in lower abdomen), bowel sounds hypoactive, distended (mild), not guarding, not rigid, surgical scars (C/D/I), other (KATHYA serous) - Integumentary no rash, no growths, no abnormal pigmentation - Psychiatric oriented to time, oriented to person, oriented to place, speech is normal, memory intact - Labs 05/28/19 05:47 05/28/19 05:47
[2019-05-30] MEDS: ONDANSETRON 4 MG/2 ML INJ IV PRN (14:07)
[2019-05-30] MEDS ORDERED: FLUCONAZOLE 200 MG 200 MG/100 ML BAG IV ONE (14:39)
[2019-05-30] MEDS: METOCLOPRAMIDE 10 MG/2 ML INJ IV PRN (18:47)
[2019-05-30] MEDS: ENOXAPARIN 40 MG/0.4 ML INJ SUB-Q SCH (21:07)
[2019-05-31] MEDS: HYDROmorphone 1 MG/1 ML INJ IV PRN ×2 (05:00→23:24)
[2019-05-31] MEDS: metroNIDAZOLE/NS 500 MG/100 ML 500 MG/100 ML BAG IV SCH ×3 (06:09→23:15)
[2019-05-31] MEDS: CEFEPIME/NS 2 GM/100 ML 2 GM/100 ML BAG IV SCH ×3 (06:09→22:38)
[2019-05-31] MEDS: D5W/0.9% NACL 1,000 ML IV SCH ×2 (06:13→23:23)
[2019-05-31] MEDS: METOCLOPRAMIDE 10 MG/2 ML INJ IV PRN ×2 (06:13→18:12)
[2019-05-31] MEDS: KETOROLAC 30 MG/1 ML INJ IV SCH ×3 (07:18→17:30)
--- NOTE | 2019-05-31 10:11 | Progress Note ---
Assessment and Plan Assessment and plan: 34-year-old woman with no significant past medical history who presents to the hospital with abdominal pain. Diagnosis Cecal pneumatosis with thickened jejunum Intractable nausea vomiting Colitis and jejunitis Sepsis UTI ruled out, urine culture negative plan Status post ex lap 05/27 which showed small amount of few fluid resembling chyle in the abdomen coating small bowel, omental adhesions anterior abdominal wall and right lower quadrant and cecum. Given intractable nausea vomiting, will obtain x-ray to rule out SBO. Keep n.p.o. now except for ice chips -Currently on empiric antibiotics, is likely due to an infectious process, ID consult appreciated Follow-up Chlamydia gonorrhea and HIV screen, status post 1 g of azithromycin to cover for chlamydia, on broad-spectrum antibiotics which will also cover gonorrhea Dvt ppx- lovenox History Interval history: Complaining of nonstop vomiting, could not keep water down No fevers Denies vaginal discharge Abdominal pain feels like a squeezing of her belly, but is improved Hospitalist Physical - Physical exam Narrative exam: General.: Nontoxic appearance HEENT: Moist mucous membranes, extraocular muscles intact, no lymphadenopathy Neck: supple Cardiac: S1-S2 heard Lungs: clear to auscultation bilaterally Abdomen: soft , tenderness around surgical sites, dressing was not removed, nondistended, bowel sounds positive Extremities: no edema clubbing or cyanosis Skin: no rash or lesions Neurologic: no gross focal deficits Psych: Patient is sad today, she states that it is a personal issue - Constitutional Vitals: Temp Pulse Resp BP Pulse Ox 98.1 F 64 18 125/54 99 05/31/19 08:28 05/31/19 08:28 05/31/19 08:28 05/31/19 08:28 05/31/19 08:28 General appearance: Present: severe distress Results - Labs CBC & Chem 7: 05/28/19 05:47 05/28/19 05:47 Labs: Laboratory Last Values WBC 14.1 K/mm3 (4.5-11.0) H 05/28/19 05:47 RBC 2.83 M/mm3 (3.65-5.03) L 05/28/19 05:47 Hgb 9.9 gm/dl (10.1-14.3) L 05/28/19 05:47 Hct 29.1 % (30.3-42.9) L D 05/28/19 05:47 MCV 103 fl (79-97) H 05/28/19 05:47 MCH 35 pg (28-32) H 05/28/19 05:47 MCHC 34 % (30-34) 05/28/19 05:47 RDW 13.8 % (13.2-15.2) 05/28/19 05:47 Plt Count 137 K/mm3 (140-440) L 05/28/19 05:47 Lymph % (Auto) 6.6 % (13.4-35.0) L 05/27/19 13:57 [place] % (Auto) 3.0 % (0.0-7.3) 05/27/19 13:57 Eos % (Auto) 0.1 % (0.0-4.3) 05/27/19 13:57 Baso % (Auto) 0.5 % (0.0-1.8) 05/27/19 13:57 Lymph # 0.9 K/mm3 (1.2-5.4) L 05/27/19 13:57 [place] # 0.4 K/mm3 (0.0-0.8) 05/27/19 13:57 Eos # 0.0 K/mm3 (0.0-0.4) 05/27/19 13:57 Baso # 0.1 K/mm3 (0.0-0.1) 05/27/19 13:57 Add Manual Diff Complete 05/28/19 05:47 Total Counted 100 05/28/19 05:47 Seg Neutrophils % Audiologist 05/28/19 05:47 Seg Neuts % (Manual) 94.0 % (40.0-70.0) H 05/28/19 05:47 Band Neutrophils % 0 % 05/28/19 05:47 Lymphocytes % (Manual) 1.0 % (13.4-35.0) L 05/28/19 05:47 Reactive Lymphs % (Man) 0 % 05/28/19 05:47 Monocytes % (Manual) 4.0 % (0.0-7.3) 05/28/19 05:47 Eosinophils % (Manual) 0 % (0.0-4.3) 05/28/19 05:47 Basophils % (Manual) 0 % (0.0-1.8) 05/28/19 05:47 Metamyelocytes % 1.0 % 05/28/19 05:47 Myelocytes % 0 % 05/28/19 05:47 Promyelocytes % 0 % 05/28/19 05:47 Blast Cells % 0 % 05/28/19 05:47 Nucleated RBC % Not Reportable 05/28/19 05:47 Seg Neutrophils # 12.4 K/mm3 (1.8-7.7) H 05/27/19 13:57 Seg Neutrophils # Man 13.3 K/mm3 (1.8-7.7) H 05/28/19 05:47 Band Neutrophils # 0.0 K/mm3 05/28/19 05:47 Lymphocytes # (Manual) 0.1 K/mm3 (1.2-5.4) L 05/28/19 05:47 Abs React Lymphs (Man) 0.0 K/mm3 05/28/19 05:47 Monocytes # (Manual) 0.6 K/mm3 (0.0-0.8) 05/28/19 05:47 Eosinophils # (Manual) 0.0 K/mm3 (0.0-0.4) 05/28/19 05:47 Basophils # (Manual) 0.0 K/mm3 (0.0-0.1) 05/28/19 05:47 Metamyelocytes # 0.1 K/mm3 05/28/19 05:47 Myelocytes # 0.0 K/mm3 05/28/19 05:47 Promyelocytes # 0.0 K/mm3 05/28/19 05:47 Blast Cells # 0.0 K/mm3 05/28/19 05:47 WBC Morphology Not Reportable 05/28/19 05:47 Hypersegmented Neuts Not Reportable 05/28/19 05:47 Hyposegmented Neuts Not Reportable 05/28/19 05:47 Hypogranular Neuts Not Reportable 05/28/19 05:47 Smudge Cells Not Reportable 05/28/19 05:47 Toxic Granulation Not Reportable 05/28/19 05:47 Toxic Vacuolation Not Reportable 05/28/19 05:47 Dohle Bodies Not Reportable 05/28/19 05:47 [place]-Huet Anomaly Not Reportable 05/28/19 05:47 [place] Rods Not Reportable 05/28/19 05:47 Platelet Estimate Consistent w auto 05/28/19 05:47 Clumped Platelets Not Reportable 05/28/19 05:47 Plt Clumps, EDTA Not Reportable 05/28/19 05:47 Large Platelets Not Reportable 05/28/19 05:47 Giant Platelets Not Reportable 05/28/19 05:47 Platelet Satelliting Not Reportable 05/28/19 05:47 Plt Morphology Comment Not Reportable 05/28/19 05:47 RBC Morphology Not Reportable 05/28/19 05:47 Dimorphic RBCs Not Reportable 05/28/19 05:47 Polychromasia Not Reportable 05/28/19 05:47 Hypochromasia Not Reportable 05/28/19 05:47 Poikilocytosis Not Reportable 05/28/19 05:47 Anisocytosis Not Reportable 05/28/19 05:47 Microcytosis Not Reportable 05/28/19 05:47 Macrocytosis Rare 05/28/19 05:47 Spherocytes Not Reportable 05/28/19 05:47 Pappenheimer Bodies Not Reportable 05/28/19 05:47 Sickle Cells Not Reportable 05/28/19 05:47 Target Cells Not Reportable 05/28/19 05:47 Tear Drop Cells Not Reportable 05/28/19 05:47 Ovalocytes Few 05/28/19 05:47 Helmet Cells Not Reportable 05/28/19 05:47 [place] Bodies Not Reportable 05/28/19 05:47 [place] Rings Not Reportable 05/28/19 05:47 Peter Cells Not Reportable 05/28/19 05:47 Bite Cells Not Reportable 05/28/19 05:47 Crenated Cell Not Reportable 05/28/19 05:47 Elliptocytes Not Reportable 05/28/19 05:47 Acanthocytes (Spur) Not Reportable 05/28/19 05:47 Rouleaux Not Reportable 05/28/19 05:47 Hemoglobin C Crystals Not Reportable 05/28/19 05:47 Schistocytes Not Reportable 05/28/19 05:47 Malaria parasites Not Reportable 05/28/19 05:47 Jony Bodies Not Reportable 05/28/19 05:47 Hem Pathologist Commnt No 05/28/19 05:47 Sodium 140 mmol/L (137-145) 05/28/19 05:47 Potassium 4.0 mmol/L (3.6-5.0) 05/28/19 05:47 Chloride 110.2 mmol/L (98-107) H 05/28/19 05:47 Carbon Dioxide 21 mmol/L (22-30) L 05/28/19 05:47 Anion Gap 13 mmol/L 05/28/19 05:47 BUN 8 mg/dL (7-17) 05/28/19 05:47 Creatinine 0.7 mg/dL (0.7-1.2) 05/28/19 05:47 Estimated GFR > 60 ml/min 05/28/19 05:47 BUN/Creatinine Ratio 11 % 05/28/19 05:47 Glucose 132 mg/dL (65-100) H 05/28/19 05:47 Lactic Acid 0.90 mmol/L (0.7-2.0) 05/27/19 19:53 Calcium 7.8 mg/dL (8.4-10.2) L D 05/28/19 05:47 Total Bilirubin 0.90 mg/dL (0.1-1.2) 05/28/19 05:47 AST 18 units/L (5-40) 05/28/19 05:47 ALT 7 units/L (7-56) 05/28/19 05:47 Alkaline Phosphatase 43 units/L (35-129) 05/28/19 05:47 Total Protein 6.2 g/dL (6.3-8.2) L D 05/28/19 05:47 Albumin 3.5 g/dL (3.9-5) L 05/28/19 05:47 Albumin/Globulin Ratio 1.3 % 05/28/19 05:47 Lipase 11 units/L (13-60) L 05/27/19 13:57 HCG, Qual Negative (Negative) 05/27/19 13:57 Urine Color [place] (Yellow) 05/27/19 Unknown Urine Turbidity Slightly-cloudy (Clear) 05/27/19 Unknown Urine pH 6.0 (5.0-7.0) 05/27/19 Unknown Ur Specific [place] 1.040 (1.003-1.030) H 05/27/19 Unknown Urine Protein 30 mg/dl mg/dL (Negative) 05/27/19 Unknown Urine Glucose (UA) Neg mg/dL (Negative) 05/27/19 Unknown Urine Ketones 20 mg/dL (Negative) 05/27/19 Unknown Urine Blood Lg (Negative) 05/27/19 Unknown Urine Nitrite Neg (Negative) 05/27/19 Unknown Urine Bilirubin Neg (Negative) 05/27/19 Unknown Urine Urobilinogen 4.0 mg/dL (<2.0) 05/27/19 Unknown Ur Leukocyte Esterase Sm (Negative) 05/27/19 Unknown Urine WBC (Auto) 8.0 /HPF (0.0-6.0) H 05/27/19 Unknown Urine RBC (Auto) 7.0 /HPF (0.0-6.0) 05/27/19 Unknown U Epithel Cells (Auto) 12.0 /HPF (0-13.0) 05/27/19 Unknown Urine Bacteria (Auto) 1+ /HPF (Negative) 05/27/19 Unknown Urine Mucus 3+ /HPF 05/27/19 Unknown Active Medications - Current Medications Current Medications: Generic Name Dose Route Start Last Admin Trade Name Freq PRN Reason Stop Dose Admin Acetaminophen 650 mg 05/27/19 16:41 Tylenol PO Q4H PRN Pain MILD(1-3)/Fever >100.5/SEWELL Albuterol 2.5 mg 05/27/19 16:41 Proventil IH Q4HRT PRN Shortness Of Breath Enoxaparin Sodium 40 mg 05/28/19 22:00 05/30/19 21:07 Enoxaparin SUB-Q 40 mg QDAY@2200 CAL Administration Fluconazole 400 mg 05/28/19 18:00 05/30/19 11:47 Diflucan PO Not Given QDAY [facility] Hydromorphone HCl 0.5 mg 05/27/19 16:42 05/31/19 05:00 Dilaudid IV 0.5 mg Q6H PRN Administration Pain , Severe (7-10) Cefepime HCl 2 gm in 100 mls @ 200 mls/hr 05/27/19 17:00 05/31/19 06:09 Cefepime/Ns 2 Gm/100 Ml IV 200 mls/hr Q8HR CAL Administration Protocol Metronidazole 500 mg in 100 mls @ 100 mls/hr 05/27/19 17:00 05/31/19 06:09 Flagyl 500 Mg/100 Ml IV 100 mls/hr Q8HR CAL Administration Protocol Dextrose/Sodium Chloride 1,000 mls @ 100 mls/hr 05/27/19 23:00 05/31/19 06:13 D5ns IV 100 mls/hr DIRECT CAL Administration Ketorolac Tromethamine 30 mg 05/28/19 15:00 05/31/19 07:18 Toradol IV 06/02/19 14:59 Not Given Q8H CAL Metoclopramide HCl 10 mg 05/27/19 22:07 05/31/19 06:13 Reglan IV 10 mg Q6H PRN Administration Nausea And Vomiting Ondansetron HCl 4 mg 05/27/19 16:41 05/30/19 14:07 Zofran IV 4 mg Q8H PRN Administration Nausea And Vomiting Promethazine HCl 25 mg 05/31/19 09:30 Phenergan [place] DAILY CAL Sodium Chloride 10 ml 05/27/19 22:00 05/30/19 21:07 Sodium Chloride Flush Syringe 10 Ml IV 10 ml BID CAL Administration Sodium Chloride 10 ml 05/27/19 16:41 Sodium Chloride Flush Syringe 10 Ml IV PRN PRN LINE FLUSH
[2019-05-31] MEDS: ONDANSETRON 4 MG/2 ML INJ IV PRN (11:06)
[2019-05-31] MEDS: PROMETHAZINE 25 MG RECT SUPP PR SCH (11:19)
--- NOTE | 2019-05-31 15:10 | Progress Note ---
Assessment and Plan 34 yo F s/p Diagnostic laparoscopy, peritoneal lavage, placement of drain, POD 4. Abd xray 05/31/19 reviewed - no free air, distended transverse colon. Official read pending Plan: 1. continue reg diet. Will give CT phenergan prior to diflucan to help with nausea from med 2. IVF 3. prn pain control 4. DVT ppx 5. STD testing ordered by 1' service 6. abx for UTI 7. OOB/ambulate 8. stool studies Will follow. Thank you, please call with questions. Subjective Date of service: 05/31/19 Narrative: Pt seen and examined. States she had vomiting this am. She was able to eat some lunch and drink sprite which she has not vomited. She states her abdominal pain is significantly improved and she is able to walk to and from the bathroom and sit up without difficulty. Most of her abdominal pain is related to the KATHYA drain in the L abdomen. No f/c, cp, sob. Pt states vomiting is always in the morning and she feels it may be related to the medications. She had one small bowel movement and is passing flatus. Objective Vital Signs - 12hr 05/31/19 05/31/19 08:28 11:15 Temperature 98.1 F 98.2 F Pulse Rate 64 51 L Respiratory 18 18 Rate Blood Pressure 125/54 128/60 O2 Sat by Pulse 99 99 Oximetry - General physical appearance Narrative Exam: Gen: AAOx3. NAD CV: s1, S2+ Resp: even and unlabored Abd: soft, mildly distended, NT. no r/r/g. L abdominal drain KATHYA drain with serous output. Drain suture cut and drain off suction, drain removed intact. Dry dressing applied Ext: no c/c/e - Labs 05/28/19 05:47 05/28/19 05:47
--- NOTE | 2019-05-31 15:22 | XRay Report ---
ABDOMEN 1 VIEW(S) INDICATION / CLINICAL INFORMATION: Nausea and vomiting. COMPARISON: CT abdomen pelvis with contrast dated 05/27/2019 FINDINGS: TUBES / LINES: There appears to be some sort of drainage tube overlying the lower abdomen terminating in the midline pelvis. Please correlate with the patient. BOWEL GAS PATTERN: A few dilated loops of small bowel are identified in the mid abdomen measuring up to 5.9 cm in diameter. There is apparent normal gas and stool in the colon. FREE AIR / EXTRALUMINAL GAS: None seen. ADDITIONAL FINDINGS: No significant additional findings. IMPRESSION: Findings concerning for a partial small bowel obstruction. Consider further evaluation with CT abdome n and pelvis preferably with IV and oral contrast. Signer Name: Emigdio Kiser Jr, MD Signed: 05/31/2019 3:18 PM Workstation Name: [id number]
--- NOTE | 2019-05-31 15:29 | Progress Note ---
Assessment and Plan Cultures: 05/27 blood cultures - NGTD 05/27 surgical culture - NGTD; moderate PMNs A/P: 34 yo F no PMHx admitted to the hospital for surgical exploration of pneumatosis intestinalis. 1. Pneumatosis intestinalis - Unclear etiology, and there rarely is a true cause elucidated. Agree with empiric cefepime and metronidazole for now, will add fluconazole for a short course. If cultures remain negative she will likely need long-term metronidazole PO as an outpatient with a follow up CT. Possible secondary to food borne illness 2. Omental adhesions - agree with evaluating for gonorrhea/chlamydia. Will follow up with treatment recommendations if positive. Recs: - continue cefepime 2g q8h - continue metronidazole 500mg q8h - start fluconazole 400mg q24 - ordered repeat CBC for AM - follow up urine G&C NAAT Thank you for the consult, we will continue to follow. Esau Bryan MD [facility] ([facility]) M: [phone] O: [phone] F: [phone] Subjective Date of service: 05/31/19 Interval history: Remains afebrile, cultures are negative. Possible partial SBO seen on AXR. Objective - Exam Narrative Exam: Constitutional: Alert, cooperative. No acute distress Head, Ears, Nose: Normocephalic, atraumatic. External ears, nose normal Eyes: Conjunctivae/corneas clear. No icterus. No ptosis. Neck: Supple, no meningeal signs Oral: dentition fair, no thrush Cardiovascular: S1, S2 normal. Respiratory: Good air entry, clear to auscultation bilaterally GI: Soft, + tender; bowel sounds normal. No peritoneal signs. Drain in place. Musculoskeletal: No pedal edema, no cyanosis. Skin: No rash or abscess Hem/Lymphatic: No palpable cervical or supraclavicular nodes. No lymphangitis Psych: Mood ok. Affect normal Neurological: Awake, alert, oriented. No gross abnormality - Constitutional Vitals: Vital Signs Temp Pulse Resp BP Pulse Ox 98.2 F 51 L 18 128/60 99 05/31/19 11:15 05/31/19 11:15 05/31/19 11:15 05/31/19 11:15 05/31/19 11:15 Temperature -Last 24 Hours Temperature 98.2 F Temperature 98.1 F Temperature 98.4 F Temperature 98.5 F - Labs CBC & Chem 7: 05/28/19 05:47 05/28/19 05:47
[2019-05-31] MEDS: FLUCONAZOLE 200 MG TAB PO SCH (16:09)
[2019-05-31] MEDS: ENOXAPARIN 40 MG/0.4 ML INJ SUB-Q SCH (22:38)
[2019-06-01] MEDS: KETOROLAC 30 MG/1 ML INJ IV SCH ×4 (00:15→23:15)
[2019-06-01] MEDS: CEFEPIME/NS 2 GM/100 ML 2 GM/100 ML BAG IV SCH ×2 (05:12→13:27)
[2019-06-01] MEDS: HYDROmorphone 1 MG/1 ML INJ IV PRN (05:23)
[2019-06-01] MEDS: METOCLOPRAMIDE 10 MG/2 ML INJ IV PRN (05:23)
[2019-06-01] MEDS: metroNIDAZOLE/NS 500 MG/100 ML 500 MG/100 ML BAG IV SCH ×4 (06:21→21:33)
[2019-06-01 06:41] LABS: Basophils % (Auto) 0.5 % (0.0-1.8); Eosinophils # (Auto) 0.1 K/mm3 (0.0-0.4); Eosinophils % (Auto) 1.6 % (0.0-4.3); Hematocrit 31.8 % (30.3-42.9); Hemoglobin 10.7 gm/dl (10.1-14.3); Lymphocytes # (Auto) 1.2 K/mm3 (1.2-5.4); Lymphocytes % (Auto) 22.5 % (13.4-35.0); Mean Corpuscular HGB Conc 34 % (30-34); Mean Corpuscular Volume 102 fl (79-97); Monocytes # (Auto) 0.4 K/mm3 (0.0-0.8); Monocytes % (Auto) 7.9 % (0.0-7.3); Platelet Count 178 K/mm3 (140-440); Red Blood Count 3.12 M/mm3 (3.65-5.03); Red Cell Distribution Width 13.2 % (13.2-15.2)
--- NOTE | 2019-06-01 08:03 | Progress Note ---
Assessment and Plan Assessment and plan: 34-year-old woman with no significant past medical history was admitted through emergency room with abdominal pain --Pneumatosis cecum and thickened jejunum s/p Diagnostic laparoscopy, peritoneal lavage, placement of drain, POD 5 Patient complains of nausea and vomiting Nurse reports that patient has nausea vomiting while receiving IV Supportive care, Abdominal x-ray; no SBO --Pneumatosis intestinalis; ID following On empiric antibiotics cefepime Flagyl and Diflucan Follow recommendations and supportive care --Sepsis; UTI ruled out, urine culture negative --DVT prophylaxis; Lovenox --Ambulate as tolerated Hand Paster recommendations noted and appreciated Monitor closely and adjust management as needed Plan of care reviewed with the patient and her nurse History Interval history: Patient seen and examined medical records reviewed Patient feels slightly better Surgery advanced the diet to full liquids Vital signs noted Hospitalist Physical - Constitutional Vitals: Temp Pulse Resp BP Pulse Ox 97.9 F 57 L 16 149/87 97 06/01/19 07:40 06/01/19 07:40 06/01/19 07:40 06/01/19 07:40 06/01/19 07:40 General appearance: Present: no acute distress, cachectic, disheveled - EENT Eyes: Present: PERRL, EOM intact - Neck Neck: Present: supple, normal ROM - Respiratory Respiratory effort: normal Respiratory: bilateral: diminished, negative: rales, rhonchi, wheezing - Cardiovascular Rhythm: regular Heart Sounds: Present: S1 & S2 - Extremities Extremities: no ischemia, No edema - Abdominal General gastrointestinal: soft, non-tender, non-distended, normal bowel sounds - Integumentary Integumentary: Present: clear, warm - Psychiatric Psychiatric: appropriate mood/affect, cooperative - Neurologic Neurologic: moves all extremities Results - Labs CBC & Chem 7: 06/01/19 05:51 05/28/19 05:47 Labs: Laboratory Last Values WBC 5.3 K/mm3 (4.5-11.0) 06/01/19 05:51 RBC 3.12 M/mm3 (3.65-5.03) L 06/01/19 05:51 Hgb 10.7 gm/dl (10.1-14.3) 06/01/19 05:51 Hct 31.8 % (30.3-42.9) 06/01/19 05:51 MCV 102 fl (79-97) H 06/01/19 05:51 MCH 34 pg (28-32) H 06/01/19 05:51 MCHC 34 % (30-34) 06/01/19 05:51 RDW 13.2 % (13.2-15.2) 06/01/19 05:51 Plt Count 178 K/mm3 (140-440) 06/01/19 05:51 Lymph % (Auto) 22.5 % (13.4-35.0) 06/01/19 05:51 [place] % (Auto) 7.9 % (0.0-7.3) H 06/01/19 05:51 Eos % (Auto) 1.6 % (0.0-4.3) 06/01/19 05:51 Baso % (Auto) 0.5 % (0.0-1.8) 06/01/19 05:51 Lymph # 1.2 K/mm3 (1.2-5.4) 06/01/19 05:51 [place] # 0.4 K/mm3 (0.0-0.8) 06/01/19 05:51 Eos # 0.1 K/mm3 (0.0-0.4) 06/01/19 05:51 Baso # 0.0 K/mm3 (0.0-0.1) 06/01/19 05:51 Add Manual Diff Complete 05/28/19 05:47 Total Counted 100 05/28/19 05:47 Seg Neutrophils % 67.5 % (40.0-70.0) 06/01/19 05:51 Seg Neuts % (Manual) 94.0 % (40.0-70.0) H 05/28/19 05:47 Band Neutrophils % 0 % 05/28/19 05:47 Lymphocytes % (Manual) 1.0 % (13.4-35.0) L 05/28/19 05:47 Reactive Lymphs % (Man) 0 % 05/28/19 05:47 Monocytes % (Manual) 4.0 % (0.0-7.3) 05/28/19 05:47 Eosinophils % (Manual) 0 % (0.0-4.3) 05/28/19 05:47 Basophils % (Manual) 0 % (0.0-1.8) 05/28/19 05:47 Metamyelocytes % 1.0 % 05/28/19 05:47 Myelocytes % 0 % 05/28/19 05:47 Promyelocytes % 0 % 05/28/19 05:47 Blast Cells % 0 % 05/28/19 05:47 Nucleated RBC % Not Reportable 05/28/19 05:47 Seg Neutrophils # 3.6 K/mm3 (1.8-7.7) 06/01/19 05:51 Seg Neutrophils # Man 13.3 K/mm3 (1.8-7.7) H 05/28/19 05:47 Band Neutrophils # 0.0 K/mm3 05/28/19 05:47 Lymphocytes # (Manual) 0.1 K/mm3 (1.2-5.4) L 05/28/19 05:47 Abs React Lymphs (Man) 0.0 K/mm3 05/28/19 05:47 Monocytes # (Manual) 0.6 K/mm3 (0.0-0.8) 05/28/19 05:47 Eosinophils # (Manual) 0.0 K/mm3 (0.0-0.4) 05/28/19 05:47 Basophils # (Manual) 0.0 K/mm3 (0.0-0.1) 05/28/19 05:47 Metamyelocytes # 0.1 K/mm3 05/28/19 05:47 Myelocytes # 0.0 K/mm3 05/28/19 05:47 Promyelocytes # 0.0 K/mm3 05/28/19 05:47 Blast Cells # 0.0 K/mm3 05/28/19 05:47 WBC Morphology Not Reportable 05/28/19 05:47 Hypersegmented Neuts Not Reportable 05/28/19 05:47 Hyposegmented Neuts Not Reportable 05/28/19 05:47 Hypogranular Neuts Not Reportable 05/28/19 05:47 Smudge Cells Not Reportable 05/28/19 05:47 Toxic Granulation Not Reportable 05/28/19 05:47 Toxic Vacuolation Not Reportable 05/28/19 05:47 Dohle Bodies Not Reportable 05/28/19 05:47 Pelger-Huet Anomaly Not Reportable 05/28/19 05:47 Martinez Rods Not Reportable 05/28/19 05:47 Platelet Estimate Consistent w auto 05/28/19 05:47 Clumped Platelets Not Reportable 05/28/19 05:47 Plt Clumps, EDTA Not Reportable 05/28/19 05:47 Large Platelets Not Reportable 05/28/19 05:47 Giant Platelets Not Reportable 05/28/19 05:47 Platelet Satelliting Not Reportable 05/28/19 05:47 Plt Morphology Comment Not Reportable 05/28/19 05:47 RBC Morphology Not Reportable 05/28/19 05:47 Dimorphic RBCs Not Reportable 05/28/19 05:47 Polychromasia Not Reportable 05/28/19 05:47 Hypochromasia Not Reportable 05/28/19 05:47 Poikilocytosis Not Reportable 05/28/19 05:47 Anisocytosis Not Reportable 05/28/19 05:47 Microcytosis Not Reportable 05/28/19 05:47 Macrocytosis Rare 05/28/19 05:47 Spherocytes Not Reportable 05/28/19 05:47 Pappenheimer Bodies Not Reportable 05/28/19 05:47 Sickle Cells Not Reportable 05/28/19 05:47 Target Cells Not Reportable 05/28/19 05:47 Tear Drop Cells Not Reportable 05/28/19 05:47 Ovalocytes Few 05/28/19 05:47 Helmet Cells Not Reportable 05/28/19 05:47 [place] Bodies Not Reportable 05/28/19 05:47 [place] Rings Not Reportable 05/28/19 05:47 Atkins Cells Not Reportable 05/28/19 05:47 Bite Cells Not Reportable 05/28/19 05:47 Crenated Cell Not Reportable 05/28/19 05:47 Elliptocytes Not Reportable 05/28/19 05:47 Acanthocytes (Spur) Not Reportable 05/28/19 05:47 Rouleaux Not Reportable 05/28/19 05:47 Hemoglobin C Crystals Not Reportable 05/28/19 05:47 Schistocytes Not Reportable 05/28/19 05:47 Malaria parasites Not Reportable 05/28/19 05:47 Jony Bodies Not Reportable 05/28/19 05:47 Hem Pathologist Commnt No 05/28/19 05:47 Sodium 140 mmol/L (137-145) 05/28/19 05:47 Potassium 4.0 mmol/L (3.6-5.0) 05/28/19 05:47 Chloride 110.2 mmol/L (98-107) H 05/28/19 05:47 Carbon Dioxide 21 mmol/L (22-30) L 05/28/19 05:47 Anion Gap 13 mmol/L 05/28/19 05:47 BUN 8 mg/dL (7-17) 05/28/19 05:47 Creatinine 0.7 mg/dL (0.7-1.2) 05/28/19 05:47 Estimated GFR > 60 ml/min 05/28/19 05:47 BUN/Creatinine Ratio 11 % 05/28/19 05:47 Glucose 132 mg/dL (65-100) H 05/28/19 05:47 Lactic Acid 0.90 mmol/L (0.7-2.0) 05/27/19 19:53 Calcium 7.8 mg/dL (8.4-10.2) L D 05/28/19 05:47 Total Bilirubin 0.90 mg/dL (0.1-1.2) 05/28/19 05:47 AST 18 units/L (5-40) 05/28/19 05:47 ALT 7 units/L (7-56) 05/28/19 05:47 Alkaline Phosphatase 43 units/L (35-129) 05/28/19 05:47 Total Protein 6.2 g/dL (6.3-8.2) L D 05/28/19 05:47 Albumin 3.5 g/dL (3.9-5) L 05/28/19 05:47 Albumin/Globulin Ratio 1.3 % 05/28/19 05:47 Lipase 11 units/L (13-60) L 05/27/19 13:57 HCG, Qual Negative (Negative) 05/27/19 13:57 Urine Color Leny (Yellow) 05/27/19 Unknown Urine Turbidity Slightly-cloudy (Clear) 05/27/19 Unknown Urine pH 6.0 (5.0-7.0) 05/27/19 Unknown Ur Specific [place] 1.040 (1.003-1.030) H 05/27/19 Unknown Urine Protein 30 mg/dl mg/dL (Negative) 05/27/19 Unknown Urine Glucose (UA) Neg mg/dL (Negative) 05/27/19 Unknown Urine Ketones 20 mg/dL (Negative) 05/27/19 Unknown Urine Blood Lg (Negative) 05/27/19 Unknown Urine Nitrite Neg (Negative) 05/27/19 Unknown Urine Bilirubin Neg (Negative) 05/27/19 Unknown Urine Urobilinogen 4.0 mg/dL (<2.0) 05/27/19 Unknown Ur Leukocyte Esterase Sm (Negative) 05/27/19 Unknown Urine WBC (Auto) 8.0 /HPF (0.0-6.0) H 05/27/19 Unknown Urine RBC (Auto) 7.0 /HPF (0.0-6.0) 05/27/19 Unknown U Epithel Cells (Auto) 12.0 /HPF (0-13.0) 05/27/19 Unknown Urine Bacteria (Auto) 1+ /HPF (Negative) 05/27/19 Unknown Urine Mucus 3+ /HPF 05/27/19 Unknown Active Medications - Current Medications Current Medications: Generic Name Dose Route Start Last Admin Trade Name Freq PRN Reason Stop Dose Admin Acetaminophen 650 mg 05/27/19 16:41 Tylenol PO Q4H PRN Pain MILD(1-3)/Fever >100.5/SEWELL Albuterol 2.5 mg 05/27/19 16:41 Proventil IH Q4HRT PRN Shortness Of Breath Docusate Sodium 100 mg 06/01/19 10:00 Colace PO DAILY [facility] Enoxaparin Sodium 40 mg 05/28/19 22:00 05/31/19 22:38 Enoxaparin SUB-Q 40 mg QDAY@2200 [facility] Administration Fluconazole 400 mg 05/28/19 18:00 05/31/19 16:09 Diflucan PO Not Given QDAY [facility] Hydromorphone HCl 0.5 mg 05/27/19 16:42 06/01/19 05:23 Dilaudid IV 0.5 mg Q6H PRN Administration Pain , Severe (7-10) Cefepime HCl 2 gm in 100 mls @ 200 mls/hr 05/27/19 17:00 06/01/19 05:12 Cefepime/Ns 2 Gm/100 Ml IV 200 mls/hr Q8HR CAL Administration Protocol Metronidazole 500 mg in 100 mls @ 100 mls/hr 05/27/19 17:00 06/01/19 06:21 Flagyl 500 Mg/100 Ml IV 100 mls/hr Q8HR CAL Administration Protocol Dextrose/Sodium Chloride 1,000 mls @ 100 mls/hr 05/27/19 23:00 05/31/19 23:23 D5ns IV 100 mls/hr DIRECT CAL Administration Ketorolac Tromethamine 30 mg 05/28/19 15:00 06/01/19 06:21 Toradol IV 06/02/19 14:59 30 mg Q8H CAL Administration Metoclopramide HCl 10 mg 05/27/19 22:07 06/01/19 05:23 Reglan IV 10 mg Q6H PRN Administration Nausea And Vomiting Ondansetron HCl 4 mg 05/27/19 16:41 05/31/19 11:06 Zofran IV 4 mg Q8H PRN Administration Nausea And Vomiting Promethazine HCl 25 mg 05/31/19 09:30 05/31/19 11:19 Phenergan MT Not Given DAILY CAL Sodium Chloride 10 ml 05/27/19 22:00 05/31/19 22:38 Sodium Chloride Flush Syringe 10 Ml IV 10 ml BID CAL Administration Sodium Chloride 10 ml 05/27/19 16:41 Sodium Chloride Flush Syringe 10 Ml IV PRN PRN LINE FLUSH
--- NOTE | 2019-06-01 09:08 | XRay Report ---
ABDOMINAL SERIES WITH CHEST X-RAY ONE VIEW HISTORY: Nausea and vomiting FINDINGS: Compared to 05/31/2019. Single view of the chest demonstrates a stable trace right pleural effusion. T he lungs are clear. Normal heart size. Supine and upright views of the abdomen demonstrate a normal bowel gas pattern on today's exam. Previ ously described dilated loops of small bowel have resolved. No obstructive pattern is demonstrated. N o free air or pathologic calcifications. IMPRESSION: Unremarkable abdomen. Trace right pleural effusion. Signer Name: Emigdio Kiser Jr, MD Signed: 06/01/2019 9:04 AM Workstation Name: [id number]
[2019-06-01] MEDS ORDERED: ONDANSETRON 4 MG ODT TAB PO PRN (10:21)
[2019-06-01] MEDS: PROMETHAZINE 25 MG RECT SUPP PR SCH (10:24)
--- NOTE | 2019-06-01 10:24 | Progress Note ---
Assessment and Plan 34 yo F s/p Diagnostic laparoscopy, peritoneal lavage, placement of drain, POD 5 Obstruction series 06/01/19 - normal bowel gas pattern, no obstruction Pt stable. Her vomiting seems to be directly related to IV medications. Plan: 1. continue liquid diet as tolerated, encouraged patient to have family bring in something she may like to eat. 2. gentle IVF 3. prn pain control 4. DVT ppx 5. STD testing ordered by 1' service 6. abx for UTI 7. OOB/ambulate 8. stool studies 9. zofran ODT Will follow. Thank you, please call with questions. Subjective Date of service: 06/01/19 Narrative: Pt seen and examined. States that she is not having any abdominal pain. She is passing flatus but no BM yet. No f/c. She is having vomiting every time she tries to swallow medication or gets IV medications. She feels it may be the taste in her mouth causing her to become nauseated. Per nursing report, patient had vomiting overnight during and right after flushing IV. Even saline flush pushed too rapidly caused nausea and vomiting. When IV was flushed very slowly, the patient did not have nausea. Objective Vital Signs - 12hr 05/31/19 06/01/19 06/01/19 23:33 04:27 07:40 Temperature 98.7 F 98.0 F 97.9 F Pulse Rate 63 62 57 L Respiratory 18 18 16 Rate Blood Pressure 139/73 132/61 149/87 O2 Sat by Pulse 98 98 97 Oximetry - General physical appearance Narrative Exam: Gen; AAOx3. NAD CV: s1, S2+ Resp: even and unlabored Abd: soft, ND, NT. no r/r/g. Incisions c/d/i Ext: no c/c/e - Labs 06/01/19 05:51 05/28/19 05:47
[2019-06-01] MEDS: DOCUSATE SODIUM 100 MG/10 ML ORAL LIQD PO SCH (11:29)
[2019-06-01] MEDS: FLUCONAZOLE 200 MG TAB PO SCH (11:29)
--- NOTE | 2019-06-01 14:51 | Progress Note ---
Assessment and Plan Cultures: 05/27 blood cultures - NGTD 05/27 surgical culture - NGTD; moderate PMNs A/P: 34 yo F no PMHx admitted to the hospital for surgical exploration of pneumatosis intestinalis. 1. Pneumatosis intestinalis - Unclear etiology, and there rarely is a true cause elucidated. Agree with empiric cefepime and metronidazole for now, will add fluconazole for a short course. If cultures remain negative she will likely need long-term metronidazole PO as an outpatient with a follow up CT. Possible secondary to food borne illness. Ok to stop cefepime and fluconazole at this time 2. Omental adhesions - agree with evaluating for gonorrhea/chlamydia. Will follow up with treatment recommendations if positive. Recs: - stopcefepime 2g q8h - continue metronidazole 500mg q8h - stop fluconazole 400mg q24 - ordered repeat CBC for AM - follow up urine G&C NAAT Thank you for the consult, we will continue to follow. Esau Bryan MD [facility] ([facility]) M: [phone] O: [phone] F: [phone] Subjective Date of service: 06/01/19 Interval history: Remains afebrile, cultures are negative. Leukocytosis improved Objective - Exam Narrative Exam: Constitutional: Alert, cooperative. No acute distress Head, Ears, Nose: Normocephalic, atraumatic. External ears, nose normal Eyes: Conjunctivae/corneas clear. No icterus. No ptosis. Neck: Supple, no meningeal signs Oral: dentition fair, no thrush Cardiovascular: S1, S2 normal. Respiratory: Good air entry, clear to auscultation bilaterally GI: Soft, + tender; bowel sounds normal. No peritoneal signs. Drain in place. Musculoskeletal: No pedal edema, no cyanosis. Skin: No rash or abscess Hem/Lymphatic: No palpable cervical or supraclavicular nodes. No lymphangitis Psych: Mood ok. Affect normal Neurological: Awake, alert, oriented. No gross abnormality - Constitutional Vitals: Vital Signs Temp Pulse Resp BP Pulse Ox 98.1 F 64 18 152/81 100 06/01/19 11:56 06/01/19 11:56 06/01/19 11:56 06/01/19 11:56 06/01/19 11:56 Temperature -Last 24 Hours Temperature 98.1 F Temperature 97.9 F Temperature 98.0 F Temperature 98.7 F Temperature 99.4 F Temperature 98.7 F - Labs CBC & Chem 7: 06/01/19 05:51 05/28/19 05:47 Labs: Abnormal lab results 06/01/19 Range/Units 05:51 RBC 3.12 L (3.65-5.03) M/mm3 MCV 102 H (79-97) fl MCH 34 H (28-32) pg [place] % (Auto) 7.9 H (0.0-7.3) %
[2019-06-01] MEDS: D5W/0.9% NACL 1,000 ML IV SCH (17:35)
[2019-06-01] MEDS: ENOXAPARIN 40 MG/0.4 ML INJ SUB-Q SCH (21:34)
[2019-06-02] MEDS: metroNIDAZOLE/NS 500 MG/100 ML 500 MG/100 ML BAG IV SCH (06:15)
[2019-06-02] MEDS: PROMETHAZINE 25 MG RECT SUPP PR SCH (12:35)
[2019-06-02] MEDS: DOCUSATE SODIUM 100 MG/10 ML ORAL LIQD PO SCH (12:35)
--- NOTE | 2019-06-02 14:36 | Progress Note ---
Assessment and Plan 34 yo F s/p Diagnostic laparoscopy, peritoneal lavage, placement of drain, POD 6 Obstruction series 06/01/19 - normal bowel gas pattern, no obstruction Pt stable. Her vomiting seems to be directly related to certain medications and liquids she does not like Plan: 1. adv to soft diet. 2. dc IVF 3. prn pain control 4. DVT ppx 5. STD testing ordered by 1' service 6. D/w Dr. Bryan - will dc abx on discharge 7. OOB/ambulate If patient tolerates soft diet she may be discharged to home. She should follow up with me in surgery clinic in 2 weeks and ID as outpatient. No family at bedside. I called mother at patient's request few days ago and no answer. Patient states mother is on a plane right now coming to [place]. Discussed with Dr. Kuo. Thank you, please call with questions. Subjective Date of service: 06/02/19 Narrative: Pt seen and examined. Stating she wants to go home. States certain medications make her vomit such as IV abx and colace PO. She is passing flatus but has not had another BM. No f/c. Her family has not brought her food from home as suggested. She also states that apple juice gives her reflux and makes her vomit. She denies abdominal pain. Objective Vital Signs - 12hr 06/02/19 06/02/19 06/02/19 04:47 04:48 11:39 Temperature 98.2 F 98.5 F Pulse Rate 62 61 74 Respiratory 17 18 Rate Blood Pressure 124/56 136/78 O2 Sat by Pulse 98 99 100 Oximetry - General physical appearance Narrative Exam: Gen: AAOx3. NAD CV: s1, S2+ Resp: even and unlabored Abd: soft, NT, ND. no r/r/g. Incisions c/d/i - minimal ecchymosis around umbilical and suprapubic incisions Ext: no c/c/e - Labs 06/01/19 05:51 05/28/19 05:47
--- NOTE | 2019-06-02 15:45 | Progress Note ---
Assessment and Plan Cultures: 05/27 blood cultures - NGTD 05/27 surgical culture - NGTD; moderate PMNs A/P: 34 yo F no PMHx admitted to the hospital for surgical exploration of pneumatosis intestinalis. 1. Pneumatosis intestinalis - Unclear etiology, and there rarely is a true cause elucidated. Agree with empiric cefepime and metronidazole for now, will add fluconazole for a short course. If cultures remain negative she will likely need long-term metronidazole PO as an outpatient with a follow up CT. Possible secondary to food borne illness. 2. Omental adhesions - agree with evaluating for gonorrhea/chlamydia. Will follow up with treatment recommendations if positive. Recs: - Agree to stop metronidazole as she is unlikely to be compliant gien her adverse reactions. Her white count has resolved, but recommend following up with CT in 4-6 weeks to ensure radiographic resolution of the pneumatosis, which was most likely secondary to the enteritis. - Dr. Field in agreement with the plan - ok for discharge from ID standpoint - follow up in the clinic in 6-8 weeks. D/W Dr. Field Thank you for the consult, we will continue to follow. Esau Bryan MD [facility] ([facility]) M: [phone] O: [phone] F: [phone] Subjective Date of service: 06/02/19 Interval history: patient to trial soft diet today. Not tolerated PO medications, feels it makes her gag/nauseating. Refusing some medications. Objective - Exam Narrative Exam: Constitutional: Alert, cooperative. No acute distress Head, Ears, Nose: Normocephalic, atraumatic. External ears, nose normal Eyes: Conjunctivae/corneas clear. No icterus. No ptosis. Neck: Supple, no meningeal signs Oral: dentition fair, no thrush Cardiovascular: S1, S2 normal. Respiratory: Good air entry, clear to auscultation bilaterally GI: Soft, + tender; bowel sounds normal. No peritoneal signs. Drain in place. Musculoskeletal: No pedal edema, no cyanosis. Skin: No rash or abscess Hem/Lymphatic: No palpable cervical or supraclavicular nodes. No lymphangitis Psych: Mood ok. Affect normal Neurological: Awake, alert, oriented. No gross abnormality - Constitutional Vitals: Vital Signs Temp Pulse Resp BP Pulse Ox 98.5 F 74 18 136/78 100 06/02/19 11:39 06/02/19 11:39 06/02/19 11:39 06/02/19 11:39 06/02/19 11:39 Temperature -Last 24 Hours Temperature 98.5 F Temperature 98.2 F Temperature 98.2 F Temperature 98.9 F Temperature 99.5 F - Labs CBC & Chem 7: 06/01/19 05:51 05/28/19 05:47 Labs: Abnormal lab results 05/29/19 Range/Units 07:07 N.gonorrhoeae DNA (SDA) Detected H (Not Detected)
--- NOTE | 2019-06-02 15:47 | Discharge Summary ---
Providers - Providers Date of Admission: 05/27/19 16:41 Date of discharge: 06/02/19 Attending physician: CLAUDIA VILLAGOMEZ 05/28/19 10:00 Consult to Physician [CONS] Routine Comment: Consulting Provider: BHUPENDRA KIM Physician Instructions: Reason For Exam: sepsis [facility] Reason for admission: Abd pain/nausea and vomiting Condition: Stable Pertinent studies: CT abd and Pelvis Xray abdomen Procedures: Diagnostic laparoscopy, peritoneal lavage, placement of drain Hospital course: 34 YO Female with No PMH presents to ED for evaluation. Pt states that she experienced sudden onset of abdominal pain over the past 1 day with persistently worsening symptoms over the same time frame. Pt states that her pain is 10/10, constant, diffuse, radiates to the back, worsened with movement, associated with nausea and multiple episodes of vomiting. EMS notified and upon arrival the patient was found to be in distress. Admitted,evaluatedby Surgery ,had Diagnostic laparoscopy, peritoneal lavage, placement of drain Received post op care,post op Abd Xray,no evidence of SBO.Diet advanced as tolerated. Today patient feels better.Cleared by surgery for discharge. Stable at discharge Discharge Diagnosis: --Pneumatosis cecum and thickened jejunum s/p Diagnostic laparoscopy, peritoneal lavage, placement of drain, POD 5 Patient complains of nausea and vomiting Nurse reports that patient has nausea vomiting while receiving IV Supportive care, Abdominal x-ray; no SBO --Pneumatosis intestinalis; ID following On empiric antibiotics cefepime Flagyl and Diflucan Follow recommendations and supportive care --Sepsis; UTI ruled out, urine culture negative --DVT prophylaxis; Lovenox --Ambulate as tolerated Consultants recommendations noted and appreciated Stable at discharge Disposition: MD- TO HOME OR SELFCARE Time spent for discharge: 32min Core Measure Documentation - Palliative Care Palliative Care/ Comfort Measures: Not Applicable - Core Measures Any of the following diagnoses?: none Exam - Constitutional Vitals: Temp Pulse Resp BP Pulse Ox 98.5 F 74 18 136/78 100 06/02/19 11:39 06/02/19 11:39 06/02/19 11:39 06/02/19 11:39 06/02/19 11:39 General appearance: Present: no acute distress, well-nourished - EENT Eyes: Present: PERRL, EOM intact - Neck Neck: Present: supple, normal ROM - Respiratory Respiratory effort: normal Respiratory: bilateral: diminished, negative: rales, rhonchi, wheezing - Cardiovascular Rhythm: regular Heart Sounds: Present: S1 & S2 - Extremities Extremities: no ischemia, No edema - Abdominal General gastrointestinal: Present: soft, non-tender, non-distended, normal bowel sounds - Integumentary Integumentary: Present: clear, warm - Musculoskeletal Musculoskeletal: strength equal bilaterally - Psychiatric Psychiatric: appropriate mood/affect, cooperative - Neurologic Neurologic: CNII-XII intact, moves all extremities Plan Activity: advance as tolerated Diet: other (soft diet) Additional Instructions: Advised to follow soft diet advance as tolerated. Patient advised to follow ID/the department for follow-up of STD Follow up with: [facility] [Primary Care Provider] - 7 Days NOEMI HERNANDEZ MD [Staff Physician] - 7 Days ANA ROSA MEAD DO [Staff Physician] - 14 Days Prescriptions: oxyCODONE /ACETAMINOPHEN [Percocet 5/325] 1 tab PO Q8H PRN #6 tablet PRN Reason: Pain Ondansetron [Zofran ODT TAB] 4 mg PO Q8H PRN #15 tab.rapdis PRN Reason: Nausea And Vomiting
[2019-06-02 16:29] VITALS: BP 132/69
[2019-06-09 07:20] LABS: HIV-1 Antibody Differentiation SEE SCANNED RESULT; HIV-2 Antibody Differentiation SEE SCANNED RESULT
== END 2019-06-02 17:45 | disposition home or self-care (01) | DRG 853 ==
LOC: ED 13:32 → 3B-SURG 16:41
PROVIDERS: ADMIT Internal Medicine; ATTEND Internal Medicine
PROC: 0W9G0ZZ Drainage of Peritoneal Cavity, Open Approach (ICD-10-PCS; principal; 2019-05-27)
PROC: 3E1M38Z Irrigation of Peritoneal Cavity using Irrigating Substance, Percutaneous Approach (ICD-10-PCS; 2019-05-27)
DX: A41.9 Sepsis, unspecified organism (principal); K65.0 Generalized (acute) peritonitis; K63.89 Other specified diseases of intestine; K66.0 Peritoneal adhesions (postprocedural) (postinfection); F17.210 Nicotine dependence, cigarettes, uncomplicated; K52.9 Noninfective gastroenteritis and colitis, unspecified
CPT/HCPCS: 36415; 74018; 74022; 74177; 80053; 81001; 82140; 83690; 84703; 85007; 85025; 86689; 87040; 87075; 87086; 87116; 87591; 96365; 96372; 96375; G0378; A4217; J0330; J0456; J0500; J0692; J1100; J1170; J1450; J1650; J1885; J2250; J2270; J2370; J2405; J2704; J2710; J2765; J3010; J7030; J7042; J7050; Q0169